=== PATIENT | male | born 1935 | race Caucasian/White ===

== ENCOUNTER → 2017-10-21 | Outpatient (CLI) | payer MEDICARE, BC ==
[~2017-10-21] MED LIST: ACETAMINOPHEN 325 MG TAB As Ordered; HEPARIN 1,000 UNITS/ML 10ML VIAL (FOR RADIOLOGY& DIALYSIS ONLY) As Ordered; ISOVUE-300 61% 50ML VIAL (Q9967) As Ordered; LIDOCAINE 2% MDV 20 ML VIAL As Ordered; MIDAZOLAM INJ 2 MG/2 ML VIAL (J2250) As Ordered; fentaNYL 100 MCG/2 ML INJECTION (J3010) As Ordered
== END | disposition home or self-care (01) ==
LOC: M IRPRO 07:37
DX: I70.249 Atherosclerosis of native arteries of left leg with ulceration of unspecified site (principal); L97.929 Non-pressure chronic ulcer of unspecified part of left lower leg with unspecified severity; I70.201 Unspecified atherosclerosis of native arteries of extremities, right leg; I70.0 Atherosclerosis of aorta; I25.10 Atherosclerotic heart disease of native coronary artery without angina pectoris; N18.9 Chronic kidney disease, unspecified; I71.4 Abdominal aortic aneurysm, without rupture; Z95.1 Presence of aortocoronary bypass graft; Z87.891 Personal history of nicotine dependence
CPT/HCPCS: 36246

== ENCOUNTER 2017-10-29 07:28 | Inpatient (IN) | payer MEDICARE, BC ==
[~2017-10-29 07:28] MED LIST changes: -ACETAMINOPHEN 325 MG TAB As Ordered; -HEPARIN 1,000 UNITS/ML 10ML VIAL (FOR RADIOLOGY& DIALYSIS ONLY) As Ordered; -ISOVUE-300 61% 50ML VIAL (Q9967) As Ordered; +LIDOCAINE 1% MDV 20ML VIAL SQ; -LIDOCAINE 2% MDV 20 ML VIAL As Ordered; -MIDAZOLAM INJ 2 MG/2 ML VIAL (J2250) As Ordered; -fentaNYL 100 MCG/2 ML INJECTION (J3010) As Ordered
[2017-10-29] MEDS ORDERED: ONDANSETRON 4MG/2ML VIAL (J2405) As Ordered (07:37)
[2017-10-29] MEDS ORDERED: ROCURONIUM BROMIDE 50 MG/5 ML VIAL As Ordered (07:37)
[2017-10-29] MEDS ORDERED: PROPOFOL 200 MG/20 ML VIAL As Ordered (07:37)
[2017-10-29] MEDS ORDERED: LIDOCAINE 2% INJ 100 MG/5 ML SDV (FOR ANES.) As Ordered (07:37)
[2017-10-29] MEDS ORDERED: MIDAZOLAM INJ 2 MG/2 ML VIAL (J2250) As Ordered (07:38)
[2017-10-29] MEDS ORDERED: fentaNYL 100 MCG/2 ML INJECTION (J3010) As Ordered (07:38)
[2017-10-29] MEDS ORDERED: ACETAMINOPHEN 500 MG TAB PO (09:15)
[2017-10-29] MEDS: LR 1,000 ML IV (09:15)
[2017-10-29] MEDS ORDERED: BISACODYL 10 MG SUPP PR (09:15)
[2017-10-29] MEDS ORDERED: MOM 30ML SUSPENSION UDC PO (09:15)
[2017-10-29 09:16] LABS: HEMATOCRIT 41.1 % (42.0-52.0); HEMOGLOBIN 12.5 g/dl (13.5-17.5); MEAN CORPUSCULAR HEMOGLOBIN 24.3 pg (27.0-33.0); MEAN CORPUSCULAR HGB CONC 30.4 g/dl (32.0-36.5); PLATELET COUNT, AUTOMATED 155 10^3/uL (150-450); RED BLOOD COUNT 5.14 10^6/uL (4.30-6.10); RED CELL DISTRIBUTION WIDTH 19.2 % (11.5-14.5)
[2017-10-29 09:33] LABS: ANION GAP 8 MEQ/L (8-16); BLOOD UREA NITROGEN 28 MG/DL (7-18); CALCIUM LEVEL 9.4 MG/DL (8.8-10.2); CARBON DIOXIDE LEVEL 30 MEQ/L (21-32); CHLORIDE LEVEL 104 MEQ/L (98-107); CREATININE FOR GFR 1.26 MG/DL (0.70-1.30); GLOMERULAR FILTRATION RATE 58.3 (>35); GLUCOSE, FASTING 84 MG/DL (70-100); POTASSIUM SERUM 4.4 MEQ/L (3.5-5.1); SODIUM LEVEL 142 MEQ/L (136-145)
[2017-10-29] MEDS: VITAMIN D 1,000 INTERNATIONAL UNITS TABLET PO (10:15)
[2017-10-29] MEDS: ATORVASTATIN 20 MG TAB PO (10:16)
[2017-10-29] MEDS: PERCOCET 5MG/325MG TAB PO ×3 (10:24→22:09)
[2017-10-29 10:25] LABS: ATYPICAL LYMPH 5 % (0-5); BASOPHILS 11 % (0-4); EOSINOPHILS 24 % (0-5); LYMPHOCYTES 12 % (16-52); MONOCYTES 2 % (0-8); NEUTROPHILS 46 % (35-75)
[2017-10-29] MEDS: PIPERACILLIN/TAZOBACTAM SOD 3.375 GM in D5W MINI-BAG PLUS 50 ML IV ×3 (10:25→22:08)
[2017-10-29 10:32] LABS: PLATELET ESTIMATE NORMAL (NORMAL)
[2017-10-29] MEDS: HEPARIN SOD (PORCINE) 5000 UNITS/ML VIAL SC ×2 (14:00→22:08)
[2017-10-29 15:17] LABS: DIFF SLIDE NUMBER 181
[2017-10-29 19:22] LABS: MAGNESIUM LEVEL 2.2 MG/DL (1.8-2.4)
[2017-10-29] MEDS: METOPROLOL TART 25 MG TABLET PO (20:49)
[2017-10-29] MEDS: DOCUSATE SODIUM 100 MG CAP PO (20:49)
[2017-10-29] MEDS: SENOKOT S TAB PO (20:49)
[2017-10-29] MEDS: MORPHINE 4 MG/ML 1ML VIAL/SYRINGE (J2270) IV (23:11)
[2017-10-30] MEDS: PERCOCET 5MG/325MG TAB PO ×3 (02:18→15:17)
[2017-10-30] MEDS: HEPARIN SOD (PORCINE) 5000 UNITS/ML VIAL SC ×3 (05:29→22:34)
[2017-10-30] MEDS: PIPERACILLIN/TAZOBACTAM SOD 3.375 GM in D5W MINI-BAG PLUS 50 ML IV ×4 (05:29→22:34)
[2017-10-30 06:12] LABS: HEMATOCRIT 37.5 % (42.0-52.0); HEMOGLOBIN 11.4 g/dl (13.5-17.5); MEAN CORPUSCULAR HEMOGLOBIN 23.8 pg (27.0-33.0); MEAN CORPUSCULAR HGB CONC 30.4 g/dl (32.0-36.5); MEAN CORPUSCULAR VOLUME 78.3 fl (80.0-96.0); PLATELET COUNT, AUTOMATED 149 10^3/uL (150-450); RED BLOOD COUNT 4.79 10^6/uL (4.30-6.10); RED CELL DISTRIBUTION WIDTH 18.7 % (11.5-14.5)
[2017-10-30 06:31] LABS: ALBUMIN 2.8 GM/DL (3.2-5.2); ANION GAP 9 MEQ/L (8-16); BLOOD UREA NITROGEN 25 MG/DL (7-18); CALCIUM LEVEL 9.2 MG/DL (8.8-10.2); CARBON DIOXIDE LEVEL 27 MEQ/L (21-32); CHLORIDE LEVEL 104 MEQ/L (98-107); CREATININE FOR GFR 1.25 MG/DL (0.70-1.30); GLOMERULAR FILTRATION RATE 58.9 (>35); GLUCOSE, FASTING 75 MG/DL (70-100); PHOSPHORUS LEVEL 3.1 MG/DL (2.5-4.9); SODIUM LEVEL 140 MEQ/L (136-145)
[2017-10-30] MEDS: FUROSEMIDE 40 MG TAB PO (08:11)
[2017-10-30] MEDS: MULTIVITAMINS/MINERALS THERAP 1 TAB PO (08:11)
[2017-10-30] MEDS: DOCUSATE SODIUM 100 MG CAP PO ×2 (08:11→20:35)
[2017-10-30] MEDS: ASPIRIN 81 MG ENTERIC TAB PO (08:11)
[2017-10-30] MEDS: SENOKOT S TAB PO ×2 (08:11→20:35)
[2017-10-30] MEDS: METOPROLOL TART 25 MG TABLET PO ×2 (08:11→20:35)
[2017-10-30] MEDS: OMEPRAZOLE 20 MG CAP PO (08:11)
[2017-10-30] MEDS: ATORVASTATIN 20 MG TAB PO (08:11)
[2017-10-30] MEDS: POTASSIUM CHLORIDE 10 MEQ SR TABLET PO (08:12)
[2017-10-31] MEDS: HEPARIN SOD (PORCINE) 5000 UNITS/ML VIAL SC ×3 (05:30→21:05)
[2017-10-31] MEDS: PIPERACILLIN/TAZOBACTAM SOD 3.375 GM in D5W MINI-BAG PLUS 50 ML IV ×4 (05:30→22:11)
[2017-10-31] MEDS: PERCOCET 5MG/325MG TAB PO ×2 (06:06→15:33)
[2017-10-31] MEDS: VITAMIN D 1,000 INTERNATIONAL UNITS TABLET PO (08:43)
[2017-10-31] MEDS: OMEPRAZOLE 20 MG CAP PO (08:43)
[2017-10-31] MEDS: predniSONE 2.5 MG TAB PO (08:44)
[2017-10-31] MEDS: ATORVASTATIN 20 MG TAB PO (08:44)
[2017-10-31] MEDS: METOPROLOL TART 25 MG TABLET PO ×2 (08:44→20:13)
[2017-10-31] MEDS: SENOKOT S TAB PO ×2 (08:44→19:53)
[2017-10-31] MEDS: MULTIVITAMINS/MINERALS THERAP 1 TAB PO (08:44)
[2017-10-31] MEDS: DOCUSATE SODIUM 100 MG CAP PO ×2 (08:44→19:53)
[2017-10-31] MEDS: ASPIRIN 81 MG ENTERIC TAB PO (08:44)
[2017-11-01] MEDS: PERCOCET 5MG/325MG TAB PO ×2 (03:52→10:54)
[2017-11-01] MEDS: HEPARIN SOD (PORCINE) 5000 UNITS/ML VIAL SC ×2 (05:26→13:17)
[2017-11-01] MEDS: PIPERACILLIN/TAZOBACTAM SOD 3.375 GM in D5W MINI-BAG PLUS 50 ML IV ×2 (05:31→10:54)
[2017-11-01] MEDS: DOCUSATE SODIUM 100 MG CAP PO (08:14)
[2017-11-01] MEDS: SENOKOT S TAB PO (08:14)
[2017-11-01] MEDS: SANTYL OINT 30GM TOP (09:00)
[2017-11-01] MEDS: ASPIRIN 81 MG ENTERIC TAB PO (09:16)
[2017-11-01] MEDS: FUROSEMIDE 40 MG TAB PO (09:16)
[2017-11-01] MEDS: ATORVASTATIN 20 MG TAB PO (09:17)
[2017-11-01] MEDS: POTASSIUM CHLORIDE 10 MEQ SR TABLET PO (09:17)
[2017-11-01] MEDS: MULTIVITAMINS/MINERALS THERAP 1 TAB PO (09:17)
[2017-11-01] MEDS: OMEPRAZOLE 20 MG CAP PO (09:17)
[2017-11-01] MEDS: METOPROLOL TART 25 MG TABLET PO (09:19)
== END 2017-11-01 16:47 | disposition home or self-care (01) | DRG 603 ==
LOC: M OR 07:28 → M MSPAV 10:10
DX: L03.116 Cellulitis of left lower limb (principal); I50.32 Chronic diastolic (congestive) heart failure; I70.222 Atherosclerosis of native arteries of extremities with rest pain, left leg; I70.248 Atherosclerosis of native arteries of left leg with ulceration of other part of lower leg; I11.0 Hypertensive heart disease with heart failure; Z79.82 Long term (current) use of aspirin; Z79.899 Other long term (current) drug therapy; Z88.8 Allergy status to other drugs, medicaments and biological substances; G47.33 Obstructive sleep apnea (adult) (pediatric); Z95.0 Presence of cardiac pacemaker; E78.5 Hyperlipidemia, unspecified; Z95.2 Presence of prosthetic heart valve; D69.6 Thrombocytopenia, unspecified; Z87.891 Personal history of nicotine dependence; D75.1 Secondary polycythemia; I71.2 Thoracic aortic aneurysm, without rupture; I49.5 Sick sinus syndrome; Z53.29 Procedure and treatment not carried out because of patient's decision for other reasons

== ENCOUNTER 2017-12-06 10:18 | Inpatient (IN) | payer MEDICARE, BC ==
[2017-12-06] MEDS ORDERED: MORPHINE 4 MG/ML 1ML VIAL/SYRINGE (J2270) As Ordered (12:07)
[2017-12-06] MEDS: MORPHINE 4 MG/ML 1ML VIAL/SYRINGE (J2270) IV (12:10)
[2017-12-06] MEDS ORDERED: CONRAY-60 60% 50ML VIAL (Q9961) As Ordered (12:28)
[2017-12-06] MEDS ORDERED: HEPARIN SOD (PORCINE) 5000 UNITS/ML VIAL As Ordered ×2 (12:28→16:57)
[2017-12-06] MEDS ORDERED: CLINDAMYCIN 600 MG/50 ML PREMIX BAG As Ordered (12:28)
[2017-12-06] MEDS ORDERED: fentaNYL 250 MCG/5 ML INJECTION (J3010) As Ordered (12:43)
[2017-12-06] MEDS ORDERED: LIDOCAINE 2% INJ 100 MG/5 ML SDV (FOR ANES.) As Ordered (12:43)
[2017-12-06] MEDS ORDERED: MIDAZOLAM INJ 2 MG/2 ML VIAL (J2250) As Ordered (12:43)
[2017-12-06] MEDS ORDERED: ROCURONIUM BROMIDE 50 MG/5 ML VIAL As Ordered ×2 (12:43→16:25)
[2017-12-06] MEDS ORDERED: PROPOFOL 200 MG/20 ML VIAL As Ordered (12:43)
[2017-12-06] MEDS ORDERED: ETOMIDATE INJ 20MG/10ML VIAL As Ordered (14:12)
[2017-12-06] MEDS: ceFAZolin 1GM INJ (J0690 PER 500MG) As Ordered (14:56)
[2017-12-06] MEDS ORDERED: dexameTHASONE 4 MG/ML 1ML VIAL (J1100) As Ordered ×2 (16:26)
[2017-12-06] MEDS ORDERED: ONDANSETRON 4MG/2ML VIAL (J2405) As Ordered (16:26)
[2017-12-06] MEDS ORDERED: PHENYLEPHRINE INJ 10MG/ML VIAL (J2370) As Ordered ×4 (17:40→19:41)
[2017-12-06] MEDS: THROMBIN SOLN 20,000 UNITS KIT As Ordered (18:00)
[2017-12-06] MEDS ORDERED: PROTAMINE SULF INJ 50 MG/5 ML VIAL (J2720) As Ordered (18:34)
[2017-12-06] MEDS ORDERED: NEOSTIGMINE 10 MG/10 ML VIAL (J2710) As Ordered (18:52)
[2017-12-06] MEDS ORDERED: GLYCOPYRROLATE INJ 0.2 MG/ML 2 ML VIAL As Ordered (18:54)
[2017-12-06] MEDS: ceFAZolin 2 GM/D5W 50 ML IV BAG (J0690 PER 500MG) As Ordered (18:59)
[2017-12-06] MEDS ORDERED: PERCOCET 5MG/325MG TAB PO (19:30)
[2017-12-06] MEDS ORDERED: BISACODYL 10 MG SUPP PR (19:30)
[2017-12-06] MEDS ORDERED: MOM 30ML SUSPENSION UDC PO (19:30)
[2017-12-06] MEDS ORDERED: diphenhydrAMINE INJ 50MG/ML VIAL (J1200) IV (19:30)
[2017-12-06] MEDS ORDERED: NALBUPHINE HCL 10 MG/ML AMP (J2300) IV (19:30)
[2017-12-06] MEDS ORDERED: EPIDURAL/PCA KEYS XX (19:30)
[2017-12-06] MEDS ORDERED: ONDANSETRON 4MG/2ML VIAL (J2405) IV ×2 (19:30→19:45)
[2017-12-06] MEDS ORDERED: NALOXONE INJ 0.4 MG/1 ML VIAL (J2310) IV (19:30)
[2017-12-06] MEDS ORDERED: HYDROMORPHONE HCL 0.5 MG/ 0.5 ML SYRINGE (J1170 PER 1) As Ordered (19:38)
[2017-12-06] MEDS ORDERED: PHENYLephrine HCL 500 MCG/5 ML (100MCG/ML) SYRINGE (J2370) As Ordered (19:39)
[2017-12-06] MEDS: PHENYLEPHRINE HCL INJ 10 MG in D5W 100 ML IV (19:42)
[2017-12-06] MEDS ORDERED: HYDROMORPHONE HCL 0.5 MG/ 0.5 ML SYRINGE (J1170 PER 1) IV (19:45)
[2017-12-06] MEDS ORDERED: fentaNYL 100 MCG/2 ML INJECTION (J3010) IV (19:45)
[2017-12-06] MEDS ORDERED: NORCO, ANEXSIA 5/325MG TABLET (HYDROcodone/ACETAMINOPHEN) PO (19:45)
[2017-12-06] MEDS: MORPHINE 1MG/ML IN 0.9% NACL 100ML IV BAG IV (20:07)
[2017-12-06] MEDS: METOPROLOL TART 25 MG TABLET PO (21:00)
[2017-12-06] MEDS ORDERED: NS 1,000 ML IV (21:15)
[2017-12-06] MEDS: SENOKOT S TAB PO (22:25)
[2017-12-06] MEDS: DOCUSATE SODIUM 100 MG CAP PO (22:25)
[2017-12-06] MEDS: HEPARIN SOD (PORCINE) 5000 UNITS/ML VIAL SC (22:25)
[2017-12-06] MEDS: LR 1,000 ML IV ×2 (22:27)
[2017-12-06 23:02] LABS: IMMEDIATE SPIN CROSSMATCH 1 4
[2017-12-07] MEDS: PHENYLEPHRINE HCL INJ 50 MG in D5W 495 ML IV (00:58)
[2017-12-07 03:09] LABS: BASO # 0.1 10^3/uL (0.0-0.2); BASO % 0.8 % (0.0-1.0); EOS # 0.1 10^3/uL (0.0-0.50); EOS % 0.5 % (0.0-3.0); HEMATOCRIT 39.4 % (42.0-52.0); HEMOGLOBIN 12.1 g/dl (13.5-17.5); IMMATURE GRANULOCYTE % 0.5 % (0-3.0); LYMPH # 1.4 10^3/uL (1.5-4.5); MEAN CORPUSCULAR HEMOGLOBIN 25.5 pg (27.0-33.0); MEAN CORPUSCULAR HGB CONC 30.7 g/dl (32.0-36.5); MEAN CORPUSCULAR VOLUME 82.9 fl (80.0-96.0); MONO # 1.1 10^3/uL (0.0-0.8); MONO % 6.4 % (0.0-5.0); NEUTROPHILS # 14.3 10^3/uL (1.8-7.7); NEUTROPHILS % 83.8 % (36.0-66.0); PLATELET COUNT, AUTOMATED 124 10^3/uL (150-450); RED BLOOD COUNT 4.75 10^6/uL (4.30-6.10); RED CELL DISTRIBUTION WIDTH 18.5 % (11.5-14.5); WHITE BLOOD COUNT 17.1 10^3/uL (4.0-10.0)
[2017-12-07 03:31] LABS: ALBUMIN 2.3 GM/DL (3.2-5.2); ANION GAP 9 MEQ/L (8-16); BLOOD UREA NITROGEN 27 MG/DL (7-18); CARBON DIOXIDE LEVEL 24 MEQ/L (21-32); CHLORIDE LEVEL 111 MEQ/L (98-107); CREATININE FOR GFR 1.19 MG/DL (0.70-1.30); GLOMERULAR FILTRATION RATE > 60.0 (>35); GLUCOSE, FASTING 115 MG/DL (70-100); PHOSPHORUS LEVEL 3.8 MG/DL (2.5-4.9); POTASSIUM SERUM 4.7 MEQ/L (3.5-5.1); SODIUM LEVEL 144 MEQ/L (136-145)
[2017-12-07] MEDS: HEPARIN SOD (PORCINE) 5000 UNITS/ML VIAL SC ×3 (06:29→22:17)
[2017-12-07] MEDS: NS 1,000 ML IV ×2 (06:30→09:30)
[2017-12-07] MEDS: METOPROLOL TART 25 MG TABLET PO ×2 (09:00→20:39)
[2017-12-07] MEDS: MULTIVITAMINS/MINERALS THERAP 1 TAB PO (09:33)
[2017-12-07] MEDS: SENOKOT S TAB PO ×2 (09:33→20:39)
[2017-12-07] MEDS: OMEPRAZOLE 20 MG CAP PO (09:33)
[2017-12-07] MEDS: ATORVASTATIN 20 MG TAB PO (09:33)
[2017-12-07] MEDS: DOCUSATE SODIUM 100 MG CAP PO ×2 (09:33→20:39)
[2017-12-07] MEDS: VITAMIN D 1,000 INTERNATIONAL UNITS TABLET PO (09:33)
[2017-12-07] MEDS: POTASSIUM CHLORIDE 10 MEQ SR TABLET PO (09:34)
[2017-12-07] MEDS: ASPIRIN 81 MG ENTERIC TAB PO (09:34)
[2017-12-07] MEDS: PIPERACILLIN/TAZOBACTAM SOD 3.375 GM in D5W MINI-BAG PLUS 50 ML IV (22:17)
[2017-12-08 05:05] LABS: MEAN CORPUSCULAR HEMOGLOBIN 25.6 pg (27.0-33.0); MEAN CORPUSCULAR HGB CONC 30.6 g/dl (32.0-36.5); MEAN CORPUSCULAR VOLUME 83.6 fl (80.0-96.0); PLATELET COUNT, AUTOMATED 100 10^3/uL (150-450); RED BLOOD COUNT 3.83 10^6/uL (4.30-6.10); RED CELL DISTRIBUTION WIDTH 18.7 % (11.5-14.5); WHITE BLOOD COUNT 12.9 10^3/uL (4.0-10.0)
[2017-12-08 05:09] LABS: HEMOGLOBIN 9.8 g/dl (13.5-17.5)
[2017-12-08 05:27] LABS: ANION GAP 6 MEQ/L (8-16); BLOOD UREA NITROGEN 27 MG/DL (7-18); CALCIUM LEVEL 8.1 MG/DL (8.8-10.2); CARBON DIOXIDE LEVEL 27 MEQ/L (21-32); CHLORIDE LEVEL 109 MEQ/L (98-107); CREATININE FOR GFR 1.26 MG/DL (0.70-1.30); GLOMERULAR FILTRATION RATE 58.3 (>35); GLUCOSE, FASTING 102 MG/DL (70-100); POTASSIUM SERUM 4.4 MEQ/L (3.5-5.1); SODIUM LEVEL 142 MEQ/L (136-145)
[2017-12-08] MEDS: PIPERACILLIN/TAZOBACTAM SOD 3.375 GM in D5W MINI-BAG PLUS 50 ML IV ×4 (05:33→21:44)
[2017-12-08] MEDS: HEPARIN SOD (PORCINE) 5000 UNITS/ML VIAL SC ×3 (05:34→21:41)
[2017-12-08] MEDS: OMEPRAZOLE 20 MG CAP PO (09:18)
[2017-12-08] MEDS: SENOKOT S TAB PO ×2 (09:18→21:41)
[2017-12-08] MEDS: VITAMIN D 1,000 INTERNATIONAL UNITS TABLET PO (09:19)
[2017-12-08] MEDS: MULTIVITAMINS/MINERALS THERAP 1 TAB PO (09:19)
[2017-12-08] MEDS: ASPIRIN 81 MG ENTERIC TAB PO (09:19)
[2017-12-08] MEDS: predniSONE 2.5 MG TAB PO (09:19)
[2017-12-08] MEDS: ATORVASTATIN 20 MG TAB PO (09:19)
[2017-12-08] MEDS: METOPROLOL TART 25 MG TABLET PO ×2 (09:19→21:00)
[2017-12-08] MEDS: DOCUSATE SODIUM 100 MG CAP PO ×2 (09:19→21:41)
[2017-12-08] MEDS: POTASSIUM CHLORIDE 10 MEQ SR TABLET PO (09:20)
[2017-12-08] MEDS: PHENYLEPHRINE HCL INJ 50 MG in D5W 495 ML IV (10:46)
[2017-12-08] MEDS: FUROSEMIDE 20 MG TAB PO (10:47)
[2017-12-08] MEDS: ACETAMINOPHEN 500 MG TAB PO (14:19)
[2017-12-08] MEDS: NS 1,000 ML IV (19:29)
[2017-12-08] MEDS: MORPHINE 1MG/ML IN 0.9% NACL 100ML IV BAG IV (21:42)
[2017-12-09] MEDS: PIPERACILLIN/TAZOBACTAM SOD 3.375 GM in D5W MINI-BAG PLUS 50 ML IV ×4 (04:00→21:13)
[2017-12-09 05:08] LABS: HEMATOCRIT 29.7 % (42.0-52.0); HEMOGLOBIN 9.1 g/dl (13.5-17.5); MEAN CORPUSCULAR HEMOGLOBIN 25.8 pg (27.0-33.0); MEAN CORPUSCULAR HGB CONC 30.6 g/dl (32.0-36.5); MEAN CORPUSCULAR VOLUME 84.1 fl (80.0-96.0); RED BLOOD COUNT 3.53 10^6/uL (4.30-6.10); WHITE BLOOD COUNT 11.4 10^3/uL (4.0-10.0)
[2017-12-09 05:12] LABS: PLATELET COUNT, AUTOMATED 99 10^3/uL (150-450)
[2017-12-09 05:13] LABS: IMMATURE PLATELET FRACTION % 4.3 % (0.0-10.9)
[2017-12-09 05:23] LABS: ANION GAP 7 MEQ/L (8-16); BLOOD UREA NITROGEN 21 MG/DL (7-18); CALCIUM LEVEL 8.3 MG/DL (8.8-10.2); CARBON DIOXIDE LEVEL 27 MEQ/L (21-32); CHLORIDE LEVEL 107 MEQ/L (98-107); CREATININE FOR GFR 1.12 MG/DL (0.70-1.30); GLOMERULAR FILTRATION RATE > 60.0 (>35); GLUCOSE, FASTING 93 MG/DL (70-100); SODIUM LEVEL 141 MEQ/L (136-145)
[2017-12-09] MEDS: METOPROLOL TART 25 MG TABLET PO ×2 (08:17→21:00)
[2017-12-09] MEDS: POTASSIUM CHLORIDE 10 MEQ SR TABLET PO (08:17)
[2017-12-09] MEDS: DOCUSATE SODIUM 100 MG CAP PO ×2 (08:17→21:13)
[2017-12-09] MEDS: FUROSEMIDE 40 MG TAB PO (08:17)
[2017-12-09] MEDS: ASPIRIN 81 MG ENTERIC TAB PO (08:17)
[2017-12-09] MEDS: OMEPRAZOLE 20 MG CAP PO (08:18)
[2017-12-09] MEDS: MULTIVITAMINS/MINERALS THERAP 1 TAB PO (08:18)
[2017-12-09] MEDS: SENOKOT S TAB PO ×2 (08:18→21:13)
[2017-12-09] MEDS: ATORVASTATIN 20 MG TAB PO (09:00)
[2017-12-09] MEDS: NS 1,000 ML IV (20:47)
[2017-12-10] MEDS: PIPERACILLIN/TAZOBACTAM SOD 3.375 GM in D5W MINI-BAG PLUS 50 ML IV ×4 (04:00→21:23)
[2017-12-10 05:07] LABS: HEMATOCRIT 30.2 % (42.0-52.0); HEMOGLOBIN 9.3 g/dl (13.5-17.5); MEAN CORPUSCULAR HEMOGLOBIN 25.8 pg (27.0-33.0); MEAN CORPUSCULAR HGB CONC 30.8 g/dl (32.0-36.5); MEAN CORPUSCULAR VOLUME 83.7 fl (80.0-96.0); PLATELET COUNT, AUTOMATED 109 10^3/uL (150-450); RED BLOOD COUNT 3.61 10^6/uL (4.30-6.10); RED CELL DISTRIBUTION WIDTH 19.1 % (11.5-14.5); WHITE BLOOD COUNT 12.3 10^3/uL (4.0-10.0)
[2017-12-10 05:31] LABS: ANION GAP 5 MEQ/L (8-16); BLOOD UREA NITROGEN 16 MG/DL (7-18); CARBON DIOXIDE LEVEL 30 MEQ/L (21-32); CHLORIDE LEVEL 107 MEQ/L (98-107); CREATININE FOR GFR 1.14 MG/DL (0.70-1.30); GLOMERULAR FILTRATION RATE > 60.0 (>35); GLUCOSE, FASTING 97 MG/DL (70-100); POTASSIUM SERUM 3.9 MEQ/L (3.5-5.1); SODIUM LEVEL 142 MEQ/L (136-145)
[2017-12-10] MEDS: METOPROLOL TART 25 MG TABLET PO ×2 (09:00→20:05)
[2017-12-10] MEDS: DOCUSATE SODIUM 100 MG CAP PO ×2 (09:27→19:38)
[2017-12-10] MEDS: ASPIRIN 81 MG ENTERIC TAB PO (09:27)
[2017-12-10] MEDS: predniSONE 2.5 MG TAB PO (09:27)
[2017-12-10] MEDS: ATORVASTATIN 20 MG TAB PO (09:28)
[2017-12-10] MEDS: OMEPRAZOLE 20 MG CAP PO (09:28)
[2017-12-10] MEDS: POTASSIUM CHLORIDE 10 MEQ SR TABLET PO (09:28)
[2017-12-10] MEDS: MULTIVITAMINS/MINERALS THERAP 1 TAB PO (09:28)
[2017-12-10] MEDS: SENOKOT S TAB PO ×2 (09:28→19:39)
[2017-12-10] MEDS: VITAMIN D 1,000 INTERNATIONAL UNITS TABLET PO (09:29)
[2017-12-10] MEDS ORDERED: ONDANSETRON 4MG/2ML VIAL (J2405) IV (10:00)
[2017-12-10 10:37] LABS: NT-PRO BNP 3650 PG/ML (<450)
[2017-12-10] MEDS: PERCOCET 5MG/325MG TAB PO ×2 (15:35→21:25)
[2017-12-10] MEDS: ACETAMINOPHEN 500 MG TAB PO (23:59)
[2017-12-11] MEDS: PIPERACILLIN/TAZOBACTAM SOD 3.375 GM in D5W MINI-BAG PLUS 50 ML IV ×4 (03:16→22:06)
[2017-12-11] MEDS: MULTIVITAMINS/MINERALS THERAP 1 TAB PO (09:04)
[2017-12-11] MEDS: POTASSIUM CHLORIDE 10 MEQ SR TABLET PO (09:05)
[2017-12-11] MEDS: SENOKOT S TAB PO (09:05)
[2017-12-11] MEDS: FUROSEMIDE 40 MG TAB PO (09:05)
[2017-12-11] MEDS: OMEPRAZOLE 20 MG CAP PO (09:05)
[2017-12-11] MEDS: ATORVASTATIN 20 MG TAB PO (09:05)
[2017-12-11] MEDS: DOCUSATE SODIUM 100 MG CAP PO (09:05)
[2017-12-11] MEDS: ASPIRIN 81 MG ENTERIC TAB PO (09:06)
[2017-12-11] MEDS: METOPROLOL TART 25 MG TABLET PO ×2 (09:07→22:08)
[2017-12-11] MEDS: LACTOBACILLUS ACIDOPHILUS CAP (BACID) PO (16:13)
[2017-12-11] MEDS: HEPARIN SOD (PORCINE) 5000 UNITS/ML VIAL SQ ×2 (17:17→22:07)
[2017-12-12] MEDS: PERCOCET 5MG/325MG TAB PO ×3 (00:55→19:53)
[2017-12-12] MEDS: PIPERACILLIN/TAZOBACTAM SOD 3.375 GM in D5W MINI-BAG PLUS 50 ML IV ×4 (03:57→21:38)
[2017-12-12 06:00] LABS: BASO # 0.3 10^3/uL (0.0-0.2); BASO % 2.5 % (0.0-1.0); EOS # 3.6 10^3/uL (0.0-0.50); HEMATOCRIT 28.3 % (42.0-52.0); HEMOGLOBIN 8.8 g/dl (13.5-17.5); IMMATURE GRANULOCYTE % 0.9 % (0-3.0); LYMPH # 1.6 10^3/uL (1.5-4.5); LYMPH % 12.1 % (24.0-44.0); MEAN CORPUSCULAR HEMOGLOBIN 25.2 pg (27.0-33.0); MEAN CORPUSCULAR HGB CONC 31.1 g/dl (32.0-36.5); MEAN CORPUSCULAR VOLUME 81.1 fl (80.0-96.0); MONO # 1.1 10^3/uL (0.0-0.8); MONO % 8.1 % (0.0-5.0); NEUTROPHILS # 6.3 10^3/uL (1.8-7.7); NEUTROPHILS % 48.7 % (36.0-66.0); PLATELET COUNT, AUTOMATED 138 10^3/uL (150-450); RED BLOOD COUNT 3.49 10^6/uL (4.30-6.10); RED CELL DISTRIBUTION WIDTH 19.5 % (11.5-14.5)
[2017-12-12] MEDS: HEPARIN SOD (PORCINE) 5000 UNITS/ML VIAL SQ ×3 (06:27→21:38)
[2017-12-12 06:30] LABS: EOS % 27.7 % (0.0-3.0); POSITIVE DIFF POS FLAG
[2017-12-12] MEDS: ASPIRIN 81 MG ENTERIC TAB PO (08:37)
[2017-12-12] MEDS: predniSONE 2.5 MG TAB PO (08:37)
[2017-12-12] MEDS: OMEPRAZOLE 20 MG CAP PO (08:37)
[2017-12-12] MEDS: POTASSIUM CHLORIDE 10 MEQ SR TABLET PO (08:38)
[2017-12-12] MEDS: LACTOBACILLUS ACIDOPHILUS CAP (BACID) PO ×2 (08:38→17:18)
[2017-12-12] MEDS: METOPROLOL TART 25 MG TABLET PO ×2 (08:38→19:55)
[2017-12-12] MEDS: MULTIVITAMINS/MINERALS THERAP 1 TAB PO (08:38)
[2017-12-12] MEDS: VITAMIN D 1,000 INTERNATIONAL UNITS TABLET PO (08:38)
[2017-12-12] MEDS: ATORVASTATIN 20 MG TAB PO (08:38)
[2017-12-12] MEDS: LOPERAMIDE 2 MG CAP PO (11:15)
[2017-12-12] MEDS: FERROUS GLUCONATE 324 MG TAB PO (15:12)
[2017-12-13] MEDS: PERCOCET 5MG/325MG TAB PO ×2 (01:07→07:41)
[2017-12-13] MEDS: PIPERACILLIN/TAZOBACTAM SOD 3.375 GM in D5W MINI-BAG PLUS 50 ML IV ×2 (03:38→10:50)
[2017-12-13] MEDS: HEPARIN SOD (PORCINE) 5000 UNITS/ML VIAL SQ ×2 (06:43→13:41)
[2017-12-13] MEDS: FUROSEMIDE 40 MG TAB PO (09:00)
[2017-12-13] MEDS: ASPIRIN 81 MG ENTERIC TAB PO (10:40)
[2017-12-13] MEDS: LACTOBACILLUS ACIDOPHILUS CAP (BACID) PO (10:40)
[2017-12-13] MEDS: POTASSIUM CHLORIDE 10 MEQ SR TABLET PO (10:43)
[2017-12-13] MEDS: FERROUS GLUCONATE 324 MG TAB PO (10:43)
[2017-12-13] MEDS: MULTIVITAMINS/MINERALS THERAP 1 TAB PO (10:43)
[2017-12-13 10:49] LABS: ANION GAP 8 MEQ/L (8-16); BLOOD UREA NITROGEN 12 MG/DL (7-18); CALCIUM LEVEL 8.3 MG/DL (8.8-10.2); CARBON DIOXIDE LEVEL 27 MEQ/L (21-32); CHLORIDE LEVEL 108 MEQ/L (98-107); GLOMERULAR FILTRATION RATE > 60.0 (>35); GLUCOSE, FASTING 115 MG/DL (70-100); POTASSIUM SERUM 3.2 MEQ/L (3.5-5.1); SODIUM LEVEL 143 MEQ/L (136-145)
[2017-12-13] MEDS: ATORVASTATIN 20 MG TAB PO (10:49)
[2017-12-13] MEDS: METOPROLOL TART 25 MG TABLET PO (10:49)
[2017-12-13] MEDS: OMEPRAZOLE 20 MG CAP PO (10:50)
[2017-12-13] MEDS: LOPERAMIDE 2 MG CAP PO (11:52)
== END 2017-12-13 13:58 | disposition home health service (06) | DRG 271 ==
LOC: M OR 10:18 → M ICU 21:20 → M MSPAV 12-10 18:50
PROC: 04CJ0ZZ Extirpation of Matter from Left External Iliac Artery, Open Approach (ICD-10-PCS; principal; 2017-12-06 12:00)
PROC: 04CL0ZZ Extirpation of Matter from Left Femoral Artery, Open Approach (ICD-10-PCS; 2017-12-06 12:00)
PROC: 04UL0JZ Supplement Left Femoral Artery with Synthetic Substitute, Open Approach (ICD-10-PCS; 2017-12-06 12:00)
PROC: 04UJ0JZ Supplement Left External Iliac Artery with Synthetic Substitute, Open Approach (ICD-10-PCS; 2017-12-06 12:00)
PROC: 30233N1 Transfusion of Nonautologous Red Blood Cells into Peripheral Vein, Percutaneous Approach (ICD-10-PCS; 2017-12-06 12:00)
DX: I70.248 Atherosclerosis of native arteries of left leg with ulceration of other part of lower leg (principal); D62 Acute posthemorrhagic anemia; R19.7 Diarrhea, unspecified; Z79.899 Other long term (current) drug therapy; Z79.82 Long term (current) use of aspirin; Z88.8 Allergy status to other drugs, medicaments and biological substances; Z79.52 Long term (current) use of systemic steroids; I25.10 Atherosclerotic heart disease of native coronary artery without angina pectoris; E78.5 Hyperlipidemia, unspecified; G47.33 Obstructive sleep apnea (adult) (pediatric); Z95.0 Presence of cardiac pacemaker; Z95.2 Presence of prosthetic heart valve

== ENCOUNTER 2018-08-12 08:10 | Observation (INO) | payer MEDICARE, BC ==
[~2018-08-12] VITALS: Ht 190.5 cm; Wt 97.7 kg
[~2018-08-12 08:10] MED LIST changes: +ALEV220T26 PO; +AMOX875T2 PO; +ASPI81TA26 PO; +ATOR40TA75 PO; +AUGM875T28 PO; +BACI1CAP PO; +CEFD300CAP PO; +CENTTAB PO; +DOXY100T PO; +FERR325T16 PO; +IMOD2CAP PO; +K-TA10TA2 PO; +KLOR20TA42 PO; +LASI40TA9 PO; -LIDOCAINE 1% MDV 20ML VIAL SQ; +LIPI20TA PO; +METO50TA7 PO; +OMEP20CA4 PO; +PERC5TAB12 PO; +PERCOCET PO; +PRED25TA PO; +TYLE500T78 PO; +VITA20008 PO
[2018-08-12] MEDS ORDERED: diphenhydrAMINE INJ 50MG/ML VIAL (J1200) As Ordered ONE (08:41)
[2018-08-12] MEDS ORDERED: BUPIVACAINE HCL 0.5% 10 ML VIAL As Ordered ONE (08:41)
[2018-08-12] MEDS ORDERED: fentaNYL 100 MCG/2 ML INJECTION (J3010) As Ordered ONE ×3 (08:41→15:44)
[2018-08-12] MEDS ORDERED: HEPARIN 1,000 UNITS/ML 10ML VIAL (FOR RADIOLOGY& DIALYSIS ONLY) As Ordered ONE (08:42)
[2018-08-12] MEDS ORDERED: MIDAZOLAM INJ 2 MG/2 ML VIAL (J2250) As Ordered ONE ×3 (08:42→15:45)
[2018-08-12] MEDS ORDERED: ISOVUE-300 61% 50ML VIAL (Q9967) As Ordered ONE (08:42)
[2018-08-12] MEDS ORDERED: LIDOCAINE 2% MDV 20 ML VIAL As Ordered ONE (08:42)
[2018-08-12 08:54] LABS: HEMATOCRIT 36.2 % (42.0-52.0); HEMOGLOBIN 10.8 g/dl (13.5-17.5); MEAN CORPUSCULAR HEMOGLOBIN 23.9 pg (27.0-33.0); MEAN CORPUSCULAR HGB CONC 29.8 g/dl (32.0-36.5); MEAN CORPUSCULAR VOLUME 80.1 fl (80.0-96.0); PLATELET COUNT, AUTOMATED 161 10^3/uL (150-450); RED BLOOD COUNT 4.52 10^6/uL (4.30-6.10); WHITE BLOOD COUNT 15.7 10^3/uL (4.0-10.0)
[2018-08-12 09:12] LABS: CALCIUM LEVEL 10.3 MG/DL (8.8-10.2); CREATININE FOR GFR 1.36 MG/DL (0.70-1.30); GLOMERULAR FILTRATION RATE 53.4 (>35); POTASSIUM SERUM 4.3 MEQ/L (3.5-5.1)
--- NOTE | 2018-08-12 11:28 | ROOPDOC ---
[facility] Report Of Operation Report of Operation Jean-Paul Ware MD Aug 12, 2018 11:28
[2018-08-12 17:55] VITALS: BP 154/70
[2018-08-12] MEDS ORDERED: METO1TAB7 PO (18:15)
[2018-08-12] MEDS ORDERED: OMEP40CA2 PO (18:15)
[2018-08-12] MEDS ORDERED: ACET-897 PO (18:15)
[2018-08-12] MEDS ORDERED: OXYC1TAB23 PO (18:15)
[2018-08-12] MEDS ORDERED: CENT1TAB PO (18:15)
[2018-08-12] MEDS ORDERED: POTA1TAB14 PO (18:15)
[2018-08-12] MEDS ORDERED: D3 22000 PO (18:15)
[2018-08-12 18:56] VITALS: BP 150/62
[2018-08-12] MEDS: ACETAMINOPHEN TAB 650MG DOSE (2X325MG) PO PRN (19:52)
[2018-08-12 19:55] VITALS: BP 116/67
[2018-08-12 20:55] VITALS: BP 94/60
[2018-08-12 22:00] VITALS: BP 100/64
[2018-08-12] MEDS ORDERED: ACETAMINOPHEN 500 MG TAB PO PRN (22:15)
[2018-08-12 22:55] VITALS: BP 115/60
[2018-08-12] MEDS: PERCOCET 5MG/325MG TAB PO PRN (23:23)
[2018-08-13] VITALS (9 sets, daily range): BP systolic 102–120; BP diastolic 56–70
[2018-08-13] MEDS: ACETAMINOPHEN TAB 650MG DOSE (2X325MG) PO PRN ×2 (01:59→08:36)
[2018-08-13] MEDS: PERCOCET 5MG/325MG TAB PO PRN (05:54)
[2018-08-13 07:00] LABS: HEMATOCRIT 30.1 % (42.0-52.0); HEMOGLOBIN 9.3 g/dl (13.5-17.5); MEAN CORPUSCULAR HEMOGLOBIN 24.5 pg (27.0-33.0); MEAN CORPUSCULAR HGB CONC 30.9 g/dl (32.0-36.5); MEAN CORPUSCULAR VOLUME 79.2 fl (80.0-96.0); PLATELET COUNT, AUTOMATED 120 10^3/uL (150-450); WHITE BLOOD COUNT 15.3 10^3/uL (4.0-10.0)
[2018-08-13 07:26] LABS: ALBUMIN 2.6 GM/DL (3.2-5.2); BLOOD UREA NITROGEN 21 MG/DL (7-18); CALCIUM LEVEL 9.4 MG/DL (8.8-10.2); CARBON DIOXIDE LEVEL 26 MEQ/L (21-32); CHLORIDE LEVEL 108 MEQ/L (98-107); CREATININE FOR GFR 1.18 MG/DL (0.70-1.30); GLOMERULAR FILTRATION RATE > 60.0 (>35); GLUCOSE, FASTING 67 MG/DL (70-100); PHOSPHORUS LEVEL 2.6 MG/DL (2.5-4.9); POTASSIUM SERUM 3.8 MEQ/L (3.5-5.1); SODIUM LEVEL 140 MEQ/L (136-145)
[2018-08-13] MEDS ORDERED: ASPIRIN 81 MG ENTERIC TAB PO SCH (09:00)
[2018-08-13] MEDS ORDERED: METOPROLOL SUCC (TopROL XL) 50MG **XL** TAB PO SCH (09:00)
[2018-08-13] MEDS ORDERED: OMEPRAZOLE 20 MG CAP PO SCH (09:00)
[2018-08-13] MEDS ORDERED: FUROSEMIDE 40 MG TAB PO SCH (09:00)
[2018-08-13] MEDS ORDERED: POTASSIUM CHLORIDE 10 MEQ SR TABLET PO SCH (09:00)
[2018-08-13] MEDS ORDERED: ATORVASTATIN 20 MG TAB PO SCH (09:00)
[2018-08-13] MEDS ORDERED: MULTIVITAMINS/MINERALS THERAP 1 TAB PO SCH (09:00)
--- NOTE | 2018-08-13 11:03 | IPNPDOC ---
Date Seen The patient was seen on 08/13/18. Progress Note Vascular Surgery Dr Ware HPI: 82year oldM admitted 08/12/18 S/P angiogram 08/12/18 for LLE ischemia as per Dr Ware with intervention. This AM the pt states there is less pain in LLE. No acute medical complaints today. Denies any fevers, chills, weakness, fatigue, Headache, Chest Pain, Shortness of breath, cough, palpitations, abdominal pain, N/V/D or changes in bowel or bladder habits. PAST MEDICAL HISTORY CAD HTN HLD PROSTATE CANCER WITH RADIATION IN 2011 SLEEP APNEA WITH BIPAP LEFT LEG CELLULITIS Chronic LE wounds followed by Dr Pierce. unsteady gait, Walker. SURGICAL HISTORY OSTEOTOMY - LEFT FOOT 1967 CYSTOSCOPY 1966 TONSILLS AND ADNOIDS REMOVED 193 ANGIOPLASTY 1986 TOTAL RIGHT HIP REPLACEMENT 1996 ANGIOPLASTY AND STENT - HEART 1999 RIGHT QUAD TENDON REPAIR 2003 LEFT QUAD TENDON REPAIR X 2 2003/2004 LEFT CATARACT REMOVED 2007 LEFT POPLITEAL ANEURISM WITH STENT CABG X 4 - AORTIC VALVE REPLACED 2012 PACEMAKER 2016 ENDOVASCULAR AAA STENT 2016 EGD AND COLONOSCOPY 2018 FEM-POP BYPASS DR TOBIAS 12/05/17 PE: GEN: 82yoM, appears stated age. Alert and oriented x 3. HEENT: Normocephalic, atraumatic. Moist mucous membranes. CHEST: Regular rate and rhythm, +S1, +S2 LUNGS: Clear to auscultation bilaterally. No wheezes, rales, or rhonchi. ABD: Round, soft, non-tender, non-distended. +Bowel sounds throughout. EXT: dressings are intact BL LEs. Left foot is warm to touch. pulses are obtainable with doppler, monophasic. SKIN: [place], dry, warm. No rashes. NEURO: Alert and oriented x 3. No focal deficits appreciated. A&P: 1. PAD, LLE ischemia S/P angiogram 08/12/18 Dr Ware with intervention. Rt groin site with no bleeding or TTP. Dressing intact. Pulses LLE obtained with doppler. pain in LLE better per pt. Pt has not been OOB yet s/p procedure. Uses cane for ambulation, chronic unsteady gait. Percocet Q6prn. ASA81/Lipitor. PT HSE pending. 2. HTN. lasix/KCL. 3. CAD/CABG ASA81 Toprol XL. Possible DC today pending HSE. VS, I&O, 24H, Fishbone Vital Signs/I&O Vital Signs Date Time Temp Pulse Resp B/P (MAP) Pulse Ox O2 Delivery O2 Flow Rate FiO2 08/13/18 08:30 83 120/58 08/13/18 06:55 98.4 16 94 I&O- Last 24 Hours up to 6 AM 08/13/18 06:00 Intake Total 900 ml Output Total 450 ml Balance 450 ml Laboratory Data 24H LABS Laboratory Tests 2 08/13/18 06:38: Nucleated Red Blood Cells % (auto) 0.0, Blood Urea Nitrogen 21H, Creatinine 1.18, Sodium Level 140, Potassium Level 3.8, Chloride Level 108H, Carbon Dioxide Level 26, Anion Gap 6L, Glomerular Filtration Rate > 60.0, Calcium Level 9.4, Phosphorus Level 2.6, Albumin 2.6L CBC/BMP Laboratory Tests 08/13/18 06:38 Red Blood Count 3.80 L, Mean Corpuscular Volume 79.2 L, Mean Corpuscular Hemoglobin 24.5 L, Mean Corpuscular Hemoglobin Concent 30.9 L, Red Cell Distribution Width 19.0 H, Anion Gap 6 L Lydia Cummings Aug 13, 2018 11:03
--- NOTE | 2018-08-13 11:33 | DS.PDOC ---
Discharge Summary General Date of Admission Aug 12, 2018 at 16:34 Date of Discharge 08/13/18 Discharge Summary PROCEDURES PERFORMED DURING STAY: Angiogram LLE 08/12/18 ADMITTING DIAGNOSES: 1. LLE ischemia S/P angiogram with intervention as per Dr Ware. 2. CAD 3. HTN 4. HLD 5. Chronic LE wounds followed by Dr Pierce. 6. unsteady gait, Walker. DISCHARGE DIAGNOSES: 1. LLE ischemia S/P angiogram with intervention as per Dr Ware. 2. CAD 3. HTN 4. HLD 5. Chronic LE wounds followed by Dr Pierce. 6. unsteady gait, Walker. COMPLICATIONS/CHIEF COMPLAINT: Left Foot Ischemia. HISTORY OF PRESENT ILLNESS: Pt was scheduled for angiogram LLE with Dr Ware 08/12/18. Intervention completed, no report available at this time. Hospital Course: The pt was observed post procedure. Is awake and has had breakfast this AM. States pain is improved. Pt has not been OOB yet, PT HSE pending at this time. Uses walker for ambulation, denies falls at home. Pt has chronic Le wounds, follows with Dr Pierce for mgmt. DISCHARGE MEDICATIONS: Please see below. ALLERGIES: Please see below. PHYSICAL EXAMINATION ON DISCHARGE: VITAL SIGNS: Please see below. LABORATORY DATA: Please see below. ACTIVITY: As tolerated. DIET: JAY DISCHARGE PLAN: D/C home today after clearance from PT HSE. FU with Dr Ware 1 week. FU with PCP 1 week. Cont FU and mgmt of chronic wounds a sper Dr Pierce. DISCHARGE INSTRUCTIONS: 1. Activity as tolerated. DISCHARGE CONDITION: Stable. TIME SPENT ON DISCHARGE: Greater than 30 minutes. Vital Signs/I&Os Vital Signs Date Time Temp Pulse Resp B/P (MAP) Pulse Ox O2 Delivery O2 Flow Rate FiO2 08/13/18 08:30 83 120/58 08/13/18 06:55 98.4 16 94 I&O- Last 24 Hours up to 6 AM 08/13/18 06:00 Intake Total 900 ml Output Total 450 ml Balance 450 ml Laboratory Data Labs 24H Laboratory Tests 2 08/13/18 06:38: Nucleated Red Blood Cells % (auto) 0.0, Blood Urea Nitrogen 21H, Creatinine 1.18, Sodium Level 140, Potassium Level 3.8, Chloride Level 108H, Carbon Dioxide Level 26, Anion Gap 6L, Glomerular Filtration Rate > 60.0, Calcium Level 9.4, Phosphorus Level 2.6, Albumin 2.6L CBC/BMP Laboratory Tests 08/13/18 06:38 Red Blood Count 3.80 L, Mean Corpuscular Volume 79.2 L, Mean Corpuscular Hemoglobin 24.5 L, Mean Corpuscular Hemoglobin Concent 30.9 L, Red Cell Distribution Width 19.0 H, Anion Gap 6 L Discharge Medications Scheduled Aspirin (Aspirin EC) 81 Mg Tab, 81 MG PO DAILY, (Reported) Atorvastatin Calcium (Atorvastatin Calcium) 40 Mg Tab, 40 MG PO DAILY, (Reported) Cholecalciferol (Vitamin D3) (Vitamin D3) 2,000 Unit Tablet, 2,000 UNIT PO 4XWK, (Reported) MON, WED, TH, SAT Furosemide (Lasix) 40 Mg Tab, 40 MG PO DAILY, (Reported) Metoprolol Succinate (Metoprolol Succinate) 50 Mg Tab.er.24h, 25 MG PO DAILY, (Reported) Multivit-Min/FA/Lycopen/Lutein (Centrum Silver Tablet) 1 Each Tablet, 1 TAB PO DAILY, (Reported) Omeprazole (Omeprazole) 40 Mg Capsule.dr, 40 MG PO DAILY, (Reported) Potassium Chloride (Potassium Chloride) 20 Meq Tablet.er, 20 MEQ PO DAILY, (Reported) Scheduled PRN Acetaminophen (Tylenol Extra Strength) 500 Mg Tablet, 500 MG PO BID PRN for PAIN, (Reported) Oxycodone HCl/Acetaminophen (Oxycodone-Acetaminophen 5-325) 1 Each Tablet, 1 TAB PO Q6H PRN for PAIN, (Reported) Allergies Coded Allergies: bacitracin (Verified Allergy, Mild, RED /SWELLING, 08/12/18) neomycin (Verified Allergy, Mild, RED /SWELLING, 08/12/18) polymyxin B (Verified Allergy, Mild, RED /SWELLING, 08/12/18) Lydia Cummings Aug 13, 2018 11:33
--- NOTE | 2018-09-03 08:23 | REPIR ---
DATE OF PROCEDURE: 08/12/2018 ATTENDING SURGEON: Dr. Jose Luis Ware ASSISTANTS: Aissatou Chowdhury and Chrissy Jimenez. PREOPERATIVE DIAGNOSIS: Renal insufficiency, left lower extremity pain. POSTOPERATIVE DIAGNOSIS: Renal insufficiency, left lower extremity pain. PROCEDURE: Right common femoral arterial cannulation, left common femoral arterial angioplasty with 7 x 100 balloon, left profunda femoris artery angioplasty with 7 x 100 balloon, left profunda femoris artery angioplasty and stent with 8 x 29 carotid wall stent postdilated with 7 x 120 balloon. DESCRIPTION OF PROCEDURE: The patient was taken to the angiography suite, placed on the angiography table and then prepped and draped in standard surgical fashion. The right common femoral artery was cannulated. The catheter was placed in the left common femoral artery and angiogram performed showing high grade stenosis in the left profunda femoris artery at its origin the superficial femoral artery was occluded. The left common and profunda femoris artery were angioplasty with 7 x 120 mm balloon and a completion angiogram showed residual stenosis. The left profunda femoris artery was then stented with an 8 x 29 carotid wall stent and postdilated with a 7 x 120 balloon. A completion angiogram showed resolution of the stenosis with excellent flow into the profunda femoris artery. Catheters and wires were removed. Dressings were then applied. The patient tolerated procedure well. All instruments, sponge, and needle counts were correct at the end of the case. There were no complications. Dr. Ware was present for and directed the entire case. The patient was transferred to the holding area and subsequently discharged in stable condition.
== END 2018-08-13 13:24 | disposition home or self-care (01) ==
LOC: M IRPRO 08:10 → M MS4PR 16:34
PROVIDERS: ADMIT Surgery Vascular Surgery; ATTEND Surgery Vascular Surgery
DX: I70.245 Atherosclerosis of native arteries of left leg with ulceration of other part of foot (principal); I25.10 Atherosclerotic heart disease of native coronary artery without angina pectoris; N18.9 Chronic kidney disease, unspecified; I12.9 Hypertensive chronic kidney disease with stage 1 through stage 4 chronic kidney disease, or unspecified chronic kidney disease; M79.662 Pain in left lower leg; E78.49 Other hyperlipidemia; L97.909 Non-pressure chronic ulcer of unspecified part of unspecified lower leg with unspecified severity; R26.81 Unsteadiness on feet; Z99.89 Dependence on other enabling machines and devices; Z79.82 Long term (current) use of aspirin; Z79.899 Other long term (current) drug therapy; Z88.1 Allergy status to other antibiotic agents; Z85.46 Personal history of malignant neoplasm of prostate; Z92.3 Personal history of irradiation; Z98.61 Coronary angioplasty status; Z95.0 Presence of cardiac pacemaker; Z95.1 Presence of aortocoronary bypass graft; L97.529 Non-pressure chronic ulcer of other part of left foot with unspecified severity
CPT/HCPCS: 36415; 37226; 75710; 80048; 80069; 85027; 97162; C1725; C1757; C1760; C1769; C1876; C1887; C1894; G0378; J1200; J2250; J3010; Q9967

== ENCOUNTER → 2018-09-09 | Outpatient (CLI) | payer MEDICARE, BC ==
[~2018-09-09] MED LIST changes: +ACET-897 PO; +CENT1TAB PO; +D3 22000 PO; +METO1TAB7 PO; +OMEP40CA2 PO; +OXYC1TAB23 PO; +POTA1TAB14 PO
--- NOTE | 2018-09-09 12:13 | REP ---
BILATERAL LOWER EXTREMITY DUPLEX DOPPLER ARTERIAL ULTRASOUND: Real-time ultrasound evaluation and duplex Doppler interrogation of the bilateral lower extremity arterial systems is performed. There is diffuse partially calcified and calcified plaquing somewhat limiting the exam due to distal acoustic shadowing. On the right the profunda appears occluded. Biphasic waveforms are seen in the right common femoral artery with monophasic waveforms distal to that. There are relatively normal flow velocities throughout the right lower extremity. There appear to be stenoses in various portions of the right superficial femoral and popliteal arteries. On the left the superficial femoral artery and popliteal artery are occluded. An enlarged lymph node is seen in the left inguinal region 2.9 x 1.1 x 1.7 cm. There is a hypoechoic area in the left inguinal region which may represent hematoma from prior procedure 3.3 x 1.3 x 1.6 cm. There is reconstitution of the left anterior and posterior tibial arteries via collateral vessels. PEAK SYSTOLIC VELOCITY RIGHT LEFT Common femoral artery 41.9 cm/s 84.2 cm/s Profunda occluded 118.0 Proximal SFA 76.8 occluded Superficial femoral artery mid 84.0 occluded Superficial femoral artery distal 125.0 occluded Popliteal 70.8 occluded Proximal anterior tibial artery 87.7 35.6 Tibial peroneal trunk 53.0 22.4 Proximal posterior tibial artery 63.5 16.9 Distal posterior tibial artery 40.9 14.4 Distal anterior tibial artery 79.1 16.6 IMPRESSION: There appears to be occlusion of the right profunda artery. There appear to be multiple stenoses throughout the right superficial femoral and popliteal arteries. There is occlusion of the left superficial femoral artery and popliteal artery with reconstitution of the left anterior and posterior tibial arteries via collateral vessels. Electronically Signed by Zoran De León MD 09/09/2018 05:34 P
== END ==
LOC: M RAD 08:57
PROVIDERS: ATTEND Physician Assistant
DX: Z48.812 Encounter for surgical aftercare following surgery on the circulatory system (principal)

== ENCOUNTER → 2018-11-18 | Outpatient (POV) | payer MEDICARE, BC ==
[~2018-11-18] VITALS: Ht 190.5 cm; Wt 95.5 kg
[2018-11-18 13:00] VITALS: BP 90/46
--- NOTE | 2018-11-19 10:06 | IRCOV ---
[facility] IR Consult Office Visit IR Consult Office Visit DATE: Nov 18, 2018 REASON FOR CONSULTATION/CHIEF COMPLAINT: Nonhealing left lower extremity wound. HISTORY OF PRESENT ILLNESS: 82-year-old male with coronary artery disease, hyperlipidemia, CABG 4, endovascular AAA endograft repair in 2015 presents with nonhealing left lower extremity wound and left lower extremity rest pain. No chest pain, shortness of breath, paroxysmal nocturnal dyspnea or orthopnea. No prior amputations. ALLERGIES: Please see below. HOME MEDICATIONS: Please see below. PAST MEDICAL HISTORY: Heart disease Hyperlipidemia Prostate cancer with radiation 2011 Sleep apnea Left leg cellulitis PAST SURGICAL HISTORY: Osteotomy left foot Cystoscopy Tonsil and adenoids removed Angioplasty 1985 Total right hip replacement Cardiac stents 1998 CABG 4 Aortic valve replacement Pacemaker Endovascular AAA repair with endograft placement. Femoropopliteal bypass FAMILY HISTORY: Nonsignificant. SOCIAL HISTORY: Lives with . Needs help with activities of daily living. Denies smoking alcohol or drugs. REVIEW OF SYSTEMS: Otherwise negative. PHYSICAL EXAMINATION: VITAL SIGNS: Please see below. GENERAL APPEARANCE: Appears well. Comfortable at rest. HEENT: No scleral icterus. RESPIRATORY: Symmetric breath sounds. CARDIOVASCULAR: Normal rate. Systolic murmur. ABDOMEN: Soft nontender. No pulsatile mass. EXTREMITIES: Left lower extremity: Edema to knees. Skin warm to touch. Hairless. I reviewed the images of the left lower extremity wound. Femoral pulse 2+ Right lower extremity: Edema to knees. warm to touch. Femoral pulse 2 + NEUROLOGICAL: Alert and oriented. PSYCHIATRIC: Appropriate to circumstance. LABORATORY DATA: Imaging: I reviewed the patient's prior angiograms. Angiogram performed July 2018, retrograde left groin access and angiogram demonstrates patent left external iliac and common femoral artery. Hypertrophied profunda femoris. Flush SFA occlusion. Calcification along the occluded entire [place] SFA territory. Then further angiograms were performed with retrograde up and over access from the right groin, demonstrates SFA occlusion and patent profunda femoris. I don't see a femoropopliteal bypass. There is reconstitution of the popliteal artery below the knee, patent proximal anterior tibial artery and tibioperoneal trunk. There are no runoff images to the foot. Angioplasty of the left common femoral artery was performed and an 8 mm x 29 mm stent placed in the common femoral artery. Angiogram from September 2017: Retrograde right groin access and aortogram. No intervention. I reviewed the ultrasound from August 2018. This demonstrates patent left common femoral artery, profunda femoris and occluded SFA. Monophasic waveforms in the tibioperoneal trunk, AT and PT. ASSESSMENT/PLAN: 83-year-old male with left lower extremity rest pain and nonhealing ulcers. Status post prior common femoral angioplasty and stent placement with known flush SFA occlusion but no documentation of below knee run off. I think patient would benefit from a complete angiogram of the left lower extremity with runoff +/ intervention at same time as necessary. I discussed the risks and benefits of the procedure with the patient and patient would like to proceed. We have scheduled the patient for the procedure. I spent 30 minutes in consultation with the patient. Thank you for this referral. Allergies Coded Allergies: bacitracin (Verified Allergy, Mild, RED /SWELLING, 08/12/18) neomycin (Verified Allergy, Mild, RED /SWELLING, 08/12/18) polymyxin B (Verified Allergy, Mild, RED /SWELLING, 08/12/18) Home Medications Scheduled Aspirin (Aspirin EC), 81 MG PO DAILY, (Reported) Atorvastatin Calcium (Atorvastatin Calcium), 40 MG PO DAILY, (Reported) Cholecalciferol (Vitamin D3) (Vitamin D3), 2,000 UNIT PO 4XWK, (Reported) Furosemide (Lasix), 40 MG PO DAILY, (Reported) Metoprolol Succinate (Metoprolol Succinate), 25 MG PO DAILY, (Reported) Multivit-Min/FA/Lycopen/Lutein (Centrum Silver Tablet), 1 TAB PO DAILY, (Reported) Omeprazole (Omeprazole), 40 MG PO DAILY, (Reported) Potassium Chloride (Potassium Chloride), 20 MEQ PO DAILY, (Reported) Scheduled PRN Acetaminophen (Tylenol Extra Strength), 500 MG PO BID PRN for PAIN, (Reported) Oxycodone HCl/Acetaminophen (Oxycodone-Acetaminophen 5-325), 1 TAB PO Q6H PRN for PAIN, (Reported) VS, I&O, 24H, Fishbone Vital Signs/I&O Vital Signs Date Time Temp Pulse Resp B/P (MAP) Pulse Ox O2 Delivery O2 Flow Rate FiO2 11/18/18 13:00 98.4 60 16 90/46 (37) 95 TRISTON FLORES MD Nov 19, 2018 10:06
== END ==
LOC: M IRPOV 12:54
PROVIDERS: ATTEND Radiology Diagnostic Radiology
DX: L97.929 Non-pressure chronic ulcer of unspecified part of left lower leg with unspecified severity (principal); M79.605 Pain in left leg; I25.10 Atherosclerotic heart disease of native coronary artery without angina pectoris; E78.5 Hyperlipidemia, unspecified; I71.4 Abdominal aortic aneurysm, without rupture; Z95.5 Presence of coronary angioplasty implant and graft; Z85.46 Personal history of malignant neoplasm of prostate; Z92.3 Personal history of irradiation; Z96.641 Presence of right artificial hip joint; Z95.4 Presence of other heart-valve replacement

== ENCOUNTER → 2018-12-18 | Outpatient (CLI) | payer MEDICARE, BC ==
[~2018-12-18] MED LIST changes: +HEPARIN 1,000 UNITS/ML 10ML VIAL (FOR RADIOLOGY& DIALYSIS ONLY) As Ordered ONE; +ISOVUE-300 61% 50ML VIAL (Q9967) As Ordered ONE; +LIDOCAINE 1% MDV 20ML VIAL As Ordered ONE; +MIDAZOLAM INJ 2 MG/2 ML VIAL (J2250) As Ordered ONE; +MORPHINE 10 MG/ML 1ML VIAL (J2270) As Ordered ONE; -OMEP40CA2 PO; +OMEP40CA97 PO; +PARO10TA3 PO; +PERCOCET 5MG/325MG TAB As Ordered ONE; +PROMETHAZINE INJ 25 MG/ML VIAL (J2550) As Ordered ONE; +diphenhydrAMINE INJ 50MG/ML VIAL (J1200) As Ordered ONE; +fentaNYL 100 MCG/2 ML INJECTION (J3010) As Ordered ONE
[2018-12-18 09:10] LABS: HEMATOCRIT 36.3 % (42.0-52.0); HEMOGLOBIN 10.9 g/dl (13.5-17.5); MEAN CORPUSCULAR HEMOGLOBIN 25.2 pg (27.0-33.0); MEAN CORPUSCULAR VOLUME 83.8 fl (80.0-96.0); PLATELET COUNT, AUTOMATED 211 10^3/uL (150-450); RED BLOOD COUNT 4.33 10^6/uL (4.30-6.10); WHITE BLOOD COUNT 15.6 10^3/uL (4.0-10.0)
[2018-12-18 09:16] LABS: INR 1.11
[2018-12-18 09:24] LABS: CREATININE FOR GFR 1.31 MG/DL (0.70-1.30); GLOMERULAR FILTRATION RATE 55.6 (>35); POTASSIUM SERUM 4.6 MEQ/L (3.5-5.1)
--- NOTE | 2018-12-18 13:31 | REP ---
IR Left leg angiogram. IR Diagnostic below-knee runoff. IR ultrasound guided left common femoral access. IR moderate sedation. Clinical Information: Left lower extremity pain. Non healing wounds. Physician: Dr Pedraza.Procedure: The patient was advised of the benefits, risks, and alternatives of the procedure and informed consent was obtained.A time out was performed with verification of the patient's name, MRN, site of procedure, and type of procedure to be performed. The patient was positioned in the supine position on the angiographic table. The site was prepped and draped in the usual sterile fashion.Moderate sedation was performed by the physician including the presence of an independent trained observer who assisted in monitoring the patient's level of consciousness and physiological status. Following the administration of Fentanyl and Versed, the physician spent 60 minutes of continuous [id number] time with the patient. A manager of organizational development radiograph reveals aorto bi-iliac Endo graft. Preliminary ultrasound of the left groin demonstrates patent common femoral artery and a stent in the profunda femoris. The left femoral artery was accessed antegrade with a micropuncture kit, under ultrasound and fluoroscopic guidance. Due to significant scar tissue in the left groin from multiple prior cut downs, only the micro sheath could be placed. Left leg angiogram was performed and this demonstrates a stent in the profunda femoris. The profunda femoris is patent and hypertrophied. The stent in the profunda femoris appears to cover the origin of the superficial femoral artery. No reflux of contrast into the superficial femoral artery. There is reflux of contrast into the common femoral artery. With the micro sheath in the same location, further angiography down the leg was performed. This demonstrates complete superficial femoral artery occlusion. Numerous collaterals in the distal thigh and proximal lower leg with NO distal reconstitution of the SFA. There is a stent in the location of the popliteal artery which is completely occluded, fractured and distorted. A diagnostic below-knee runoff angiogram was then performed. This demonstrates delayed reconstitution of the very distal unstented popliteal artery. Patent proximal anterior tibial and posterior tibial artery. Further runoff angiography to the foot was performed and this demonstrates patent two-vessel runoff to the left foot. Patent proximal mid and distal anterior and posterior tibial arteries. As the micro sheath was retracted under fluoroscopy guidance, an 018 wire was used to probe the common femoral artery for any indication of superficial femoral artery origin. However, it appears this is covered by the stent in the profunda femoris. The micro sheath and wire were removed, pressure held and hemostasis achieved. A sterile dressing was applied to the site. The patient tolerated the procedure well and was returned to PRU in stable condition. Complications: None. Estimated blood loss: Less than 5 ml. Impression: 1. Left leg angiogram demonstrates a stent within the profunda femoris covering the origin of the superficial femoral artery. Complete occlusion of the proximal mid and distal superficial femoral artery with no distal reconstitution. 2. Numerous collaterals in the thigh but no direct outflow. 3. Reconstitution of the distal popliteal artery which is delayed and patent anterior tibial and posterior tibial artery runoff to the left foot. 4. I see no options for endovascular recanalization in this patient. However given good proximal and distal targets, I will refer to surgery for bypass options. Thank you for this referral. Electronically Signed by Mayda Pedraza MD 12/18/2018 01:30 P
[2018-12-18 16:30] VITALS: BP 125/71
== END ==
LOC: M IRPRO 08:24
PROVIDERS: ATTEND Radiology Diagnostic Radiology
DX: I70.222 Atherosclerosis of native arteries of extremities with rest pain, left leg (principal); I70.249 Atherosclerosis of native arteries of left leg with ulceration of unspecified site; L90.5 Scar conditions and fibrosis of skin
CPT/HCPCS: 36140; 75710; 80048; 85027; 85610; 99152; 99153; C1769; C1887; C1894; J1200; J2250; J2270; J3010; Q9967

== ENCOUNTER 2018-12-22 16:29 | Inpatient (IN) | payer MEDICARE, BC ==
[~2018-12-22] VITALS: Ht 188 cm; Wt 91.5 kg
[~2018-12-22 16:29] MED LIST changes: -HEPARIN 1,000 UNITS/ML 10ML VIAL (FOR RADIOLOGY& DIALYSIS ONLY) As Ordered ONE; -ISOVUE-300 61% 50ML VIAL (Q9967) As Ordered ONE; -LIDOCAINE 1% MDV 20ML VIAL As Ordered ONE; -MIDAZOLAM INJ 2 MG/2 ML VIAL (J2250) As Ordered ONE; -MORPHINE 10 MG/ML 1ML VIAL (J2270) As Ordered ONE; -PERCOCET 5MG/325MG TAB As Ordered ONE; -PROMETHAZINE INJ 25 MG/ML VIAL (J2550) As Ordered ONE; -diphenhydrAMINE INJ 50MG/ML VIAL (J1200) As Ordered ONE; -fentaNYL 100 MCG/2 ML INJECTION (J3010) As Ordered ONE
[2018-12-22] MEDS ORDERED: MORPHINE 2 MG/ML 1ML VIAL (J2270) IV ONE ×2 (18:45→20:15)
[2018-12-22] MEDS ORDERED: CYCLOBENZAPRINE 5MG TABLET PO ONE (18:45)
[2018-12-22 18:58] LABS: HEMOGLOBIN 10.2 g/dl (13.5-17.5); MEAN CORPUSCULAR HEMOGLOBIN 24.7 pg (27.0-33.0); MEAN CORPUSCULAR VOLUME 82.3 fl (80.0-96.0); PLATELET COUNT, AUTOMATED 198 10^3/uL (150-450); RED BLOOD COUNT 4.13 10^6/uL (4.30-6.10); WHITE BLOOD COUNT 17.6 10^3/uL (4.0-10.0)
--- NOTE | 2018-12-22 19:17 | REP ---
Clinical: Left hip injury. Technique: Portable AP view of the left hip. Findings: Osteopenia and arthritic degenerative changes are appreciated. Vascular stent identified along with peripheral vascular disease. No obvious acute fracture dislocation appreciated. Impression: No obvious acute fracture or dislocation. Electronically Signed by Chris Rios MD 12/22/2018 07:08 P
[2018-12-22 19:34] LABS: ANISOCYTOSIS 2+; BASOPHILS 9 % (0-1); EOSINOPHILS 30 % (0-3); LYMPHOCYTES 6 % (16-44); MONOCYTES 5 % (0-5); NEUTROPHILS 50 % (28-66); POIKILOCYTOSIS 1+
[2018-12-22 19:35] LABS: OVALOCYTES 1+; PLATELET ESTIMATE NORMAL (NORMAL); SMUDGE CELLS 1+
--- NOTE | 2018-12-22 20:22 | REPVR ---
PROCEDURE INFORMATION: Exam: US Left Non-Vascular Joint or Other Extremity Structure, Limited Lower Extremity Exam date and time: 12/22/2018 7:40 PM Clinical history: 83 years old, male; Pain; Thigh; Left; Prior surgery; Surgery date: 3-7 days post-operative; Surgery type: Lt angio; Additional info: Left groin pain at angio site TECHNIQUE: Imaging protocol: Left US Non-Vascular Joint or Other Extremity Structure. Limited exam of the lower extremity. COMPARISON: US BILAT LOWER EXTREM ARTERIAL 09/09/2018 9:24 AM FINDINGS: Limitations: Limited by patient's body habitus. Soft tissues: Hypoechoic area measuring 4.8 x 1.9 x 2.7 cm corresponding to the area of incision, suspect scarring, and/or postoperative fluid. Vasculature: Proximal femoral artery appears occluded, patent deep femoral artery. Common from artery not visualized. Stents in the left iliac artery appears patent. IMPRESSION: 1. Hypoechoic area measuring 4.8 x 1.9 x 2.7 cm corresponding to the area of incision, suspect scarring, and/or postoperative fluid. 2. Proximal femoral artery appears occluded, patent deep femoral artery. Common from artery not visualized. Electronically signed by: Sami Elias On 12/22/2018 20:22:34 PM
[2018-12-22] MEDS ORDERED: MORPHINE 4 MG/ML 1ML VIAL/SYRINGE (J2270) IV ONE (21:15)
[2018-12-22] MEDS ORDERED: PERCOCET 5MG/325MG TAB PO ONE (22:45)
[2018-12-22] MEDS ORDERED: ISOVUE-370 76% 100ML VIAL (Q9967) As Ordered ONE (22:45)
--- NOTE | 2018-12-23 01:33 | REPVR ---
PROCEDURE INFORMATION: Exam: CT Angiogram of the Abdominal Aorta and Bilateral Lower Extremities (Run-off) With IV Contrast Exam date and time: 12/22/2018 10:39 PM Clinical history: 83 years old, male; Condition or disease; Peripheral vascular disease; Additional info: Left leg pain; S/P angio left leg TECHNIQUE: Imaging protocol: CT angiogram of the abdominal aorta, pelvis and bilateral lower extremities with IV iodinated contrast. 3D rendering: MIP reconstructed images were created and reviewed. Radiation optimization: All CT scans at this facility use at least one of these dose optimization techniques: automated exposure control; mA and/or kV adjustment per patient size (includes targeted exams where dose is matched to clinical indication); or iterative reconstruction. Contrast material: ISO; Contrast volume: 100 ml; Contrast route: AC; COMPARISON: US UNI LOW EXTREM ARTERIAL LIMIT 12/22/2018 7:24 PM FINDINGS: Tubes, catheters and devices: Pacemaker wires were partially imaged. Aorta: There is a fusiform infrarenal abdominal aortic aneurysm that measures 3.5 cm x 3.6 cm. No rupture of the aneurysm is noted. There is a patent aortobiiliac endovascular stent graft in place extending into both common iliac arteries. Celiac trunk and mesenteric arteries: There is an occlusion of the inferior mesenteric artery, with collateral circulation supplied by the marginal artery of Ed. The celiac artery and superior mesenteric artery are patent. Renal arteries: No occlusion or significant stenosis. Right iliac arteries: No occlusion or significant stenosis. There is a patent endovascular stent graft extending from the right external iliac artery to the right common femoral artery. Right femoral/popliteal arteries: No occlusion or significant stenosis. There are extensive atherosclerotic calcifications of the right superficial femoral artery, right profunda femoris artery, and right popliteal artery. Right infrapopliteal arteries: There is severe stenosis of the right tibioperoneal trunk secondary to predominately calcified atherosclerotic plaque. The right anterior tibial artery and imaged portion of the right dorsalis pedis artery are patent. The right posterior tibial artery is patent. There is severe stenosis of the proximal portion of the right peroneal artery, which is patent more distally. Left iliac arteries: No occlusion or significant stenosis. The left internal iliac artery is ectatic and measures 1.7 cm in diameter. Left femoral/popliteal arteries: There is a long segment occlusion of the left common femoral artery, left proximal, mid, and distal superficial femoral artery, and the endovascular stent graft in the left popliteal artery at and above the level of the left knee joint. There is reconstitution of blood flow in the left popliteal artery just below the level of the left knee joint. There is a patent endovascular stent graft in the left proximal left profunda femoris artery. The left profunda femoris artery is patent. Left infrapopliteal arteries: There is a severe stenosis of the left tibioperoneal trunk secondary to calcified atherosclerotic plaque. There is severe stenosis of the left proximal anterior tibial artery secondary to calcified atherosclerotic plaque. The left anterior tibial artery is patent more distally. The left dorsalis pedis artery is also patent. There are regions of severe stenosis involving the origin and proximal portion of the left posterior tibial artery secondary to calcified atherosclerotic plaque, and the left posterior tibial artery is patent more distally. There is severe stenosis of the left proximal peroneal artery secondary to calcified atherosclerotic plaque, and the left peroneal artery is patent more distally. Lungs: There are paraseptal emphysematous changes in the lung bases. There is mild atelectasis in both lower lobes. Heart: No cardiomegaly or pericardial effusion is noted. Postoperative changes are noted from aortic valve surgery. There are extensive mitral annular calcifications. Coronary artery calcifications are also noted. Liver: Unremarkable. No liver lesion is seen. The contour of the liver is smooth. No hepatomegaly is noted. Gallbladder and bile ducts: No calcified gallstones are seen. No gallbladder wall thickening, pericholecystic fluid, or pericholecystic inflammatory changes are identified. No dilation of the intrahepatic or extrahepatic bile ducts is noted. Pancreas: Normal. No ductal dilation. Spleen: The spleen is heterogeneous in appearance, which is likely secondary to the arterial timing of the contrast bolus. No splenomegaly. Adrenals: There is left greater than right thickening of the adrenal glands. Kidneys and ureters: There are staghorn calculi in the right renal collecting system measuring approximately 2.3 cm and 2.8 cm, the larger of which extends into the right renal pelvis. There is severe left hydroureteronephrosis and mild right hydroureter. No right hydronephrosis is noted. There are several simple cysts in both kidneys measuring up to 5 cm in the superior pole of the left kidney. Stomach and bowel: There is colonic diverticulosis without evidence for diverticulitis. There is no evidence for a bowel obstruction, strangulation, colitis, pneumatosis intestinalis, intussusception, volvulus, or perforated viscus. Appendix: Normal. No evidence for appendicitis. Bladder: There are two 5.3 cm irregular polypoid masses containing calcifications along the left superior and left posterior rogers of the bladder, which are highly suspicious for malignancy. The mass along the left posterior wall of the urinary bladder is located at the left ureterovesical junction. No extension of the mass is beyond the wall of the bladder is noted. There are several calcifications layering in the dependent portion of the right side of the bladder measuring up to 4 mm, which may represent calculi. Reproductive: There are 3 small metallic density foci in the prostate gland. Intraperitoneal space: Unremarkable. No fluid collection. No free air. Retroperitoneal space: Unremarkable. No fluid collection. No mass. Lymph nodes: Normal. No enlarged lymph nodes. Bones/joints: There are no bony destructive changes. 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 The left L5 pars interarticularis is intact. No acute fracture is noted. There is no suspicious osteolytic or osteoblastic lesion. Right total hip arthroplasty hardware is in place, which causes streak artifact. 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 Median sternotomy suture wires were partially imaged. There is a moderate dextroscoliosis of the thoracolumbar spine and degenerative changes in the lumbar spine. The left patella is low riding (patella baja) and laterally riding. Soft tissues: There is a large left anterior abdominal wall hernia containing the distal descending colon and proximal sigmoid colon between the left external oblique muscle and left transversus abdominis muscle. There is a large indirect right inguinal hernia containing several loops of distal ileum. There is a small post procedural seroma and scarring of the soft tissues in the left groin. There is also scarring of the soft tissues in the right groin. There is soft tissue thickening and edema posterior and inferior to both ischial tuberosities. There is a large conglomerate of calcifications anterior to the right tibial tuberosity and distal fibers of the right patellar tendon. There is severe fatty atrophy of the posterior and deep posterior compartment muscles of both calves. There is soft tissue swelling and edema in both calves and in the dorsal aspect of both feet. There are soft tissue ulcers in the anterior and lateral aspect of the left distal calf but without an underlying drainable rim-enhancing fluid collection. No gas is noted in the soft tissues to suggest necrotizing fasciitis. IMPRESSION: 1. Two 5.3 cm irregular polypoid masses containing calcifications along the left superior and left posterior rogers of the bladder, which are highly suspicious for bladder malignancy, one which is located at the left ureterovesical junction and causes a left ureteral obstruction and severe left hydroureteronephrosis. Urology consultation is suggested for further management. 2. Long segment occlusion of the left common femoral artery, left proximal, mid, and distal superficial femoral artery, and the endovascular stent graft in the left popliteal artery at and above the level of the left knee joint. There is reconstitution of blood flow in the left popliteal artery just below the level of the left knee joint. 3. Severe stenosis of the left tibioperoneal trunk, proximal left anterior tibial artery, proximal left peroneal artery, and origin and proximal portion of the left posterior tibial artery. 4. Severe stenosis of the right tibioperoneal trunk and proximal right peroneal artery. 5. 3.5 cm x 3.6 cm fusiform infrarenal abdominal aortic aneurysm. No rupture of the aneurysm. Patent aortobiiliac endovascular stent graft in place extending into both common iliac arteries. 6. Occlusion of the inferior mesenteric artery, with collateral circulation supplied by the marginal artery of Ed. 7. Several calculi in the right posterior aspect of the urinary bladder distal to the right ureterovesical junction and there is mild right hydroureter and staghorn calculi in the right renal collecting system. 8. Large left anterior abdominal wall hernia containing the distal descending colon and proximal sigmoid colon between the left external oblique muscle and left transversus abdominis muscle. No bowel obstruction or strangulation. 9. Large indirect right inguinal hernia containing several loops of distal ileum. No bowel obstruction or strangulation. 10. Soft tissue ulcers in the anterior and lateral aspect of the left distal calf and cellulitis or lymphedema in both calves and feet. No CT evidence for an abscess, necrotizing fasciitis, or osteomyelitis. 11. Small post procedural seroma and scarring of the soft tissues in the left groin. 12. Colonic diverticulosis without evidence for diverticulitis. Electronically signed by: Matt Mcwilliams On 12/23/2018 01:32:29 AM
[2018-12-23] MEDS ORDERED: PERCOCET 5MG/325MG TAB PO ONE (02:15)
[2018-12-23] MEDS ORDERED: NS 1,000 ML IV SCH (02:30)
[2018-12-23] MEDS ORDERED: SANT250O8 TOP (03:15)
[2018-12-23] MEDS ORDERED: VITMTA PO (03:15)
[2018-12-23] MEDS ORDERED: METO25TA4 PO (03:15)
--- NOTE | 2018-12-23 03:29 | HPEPDOC ---
[facility] Medical History & Physical Date of Admission Dec 23, 2018 Date of Service: Dec 23, 2018 Primary Care Physician: A Other Provider Dulce Nogueira MD Attending Physician: RADHA ALVARENGA MD History and Physical TIME OF SERVICE: 3:50 AM CHIEF COMPLAINT: Leg pain HISTORY OF PRESENT ILLNESS: This is an 83-year-old man who presents with complaints of left leg and groin pain that was so severe he decided come to the ED for evaluation. He has a history of left femoral occlusion and had an angiogram on . He denies having fevers, denies having chills, denies having nausea, denies having vomiting, denies having abdominal pain. After receiving medications in the ED, the pain improve a bit therefore the ED provider requested admission for pain management. REVIEW OF SYSTEMS: 12 point review of systems negative except as listed in HPI PAST MEDICAL/ SURGICAL HISTORY: PVD with occlusion of the left femoral artery/history of femoropopliteal bypass. Chronic CAD status post angioplasty placement/status post quadruple by pass Dyslipidemia. History of prostate cancer status post radiation. Status post endovascular AAA graft placement Hearing loss/wears hearing aids Status post tonsillectomy. Status post cataract surgery. Status post aortic valve repair. Status post pacemaker placement. History of left lower extremity cellulitis SOCIAL HISTORY: Quit smoking FAMILY HISTORY: Cancer ALLERGIES: Please see below. HOME MEDICATIONS: Please see below. PHYSICAL EXAMINATION: VITAL SIGNS: Please see below. GENERAL APPEARANCE: Well-nourished, well-developed, not in apparent distress HEENT: Normocephalic, atraumatic, mucous membranes moist and pink CARDIOVASCULAR: Regular rate and rhythm. No murmurs, rubs or gallops LUNGS: Clear to auscultation bilaterally on room air ABDOMEN: Soft and nontender on palpation. Bowel sounds are hypoactive MUSCULOSKELETAL: Lower legs are wrapped in clean and dry dressings, the left lower leg. This purple in color but warm to touch NEUROLOGICAL: Cranial nerves II-12 except auditory are grossly intact. Speech is not dysarthric PSYCHIATRIC: Oriented able to understand and follow commands LABORATORY DATA: See below. IMAGING: Ultrasound of the left lower extremity "IMPRESSION: 1. Hypoechoic area measuring 4.8 x 1.9 x 2.7 cm corresponding to the area of incision, suspect scarring, and/or postoperative fluid. 2. Proximal femoral artery appears occluded, patent deep femoral artery. Common from artery not visualized. Left hip x-ray "Impression: No obvious acute fracture or dislocation." CT Angiogram abdomen "IMPRESSION: 1. Two 5.3 cm irregular polypoid masses containing calcifications along the left superior and left posterior rogers of the bladder, which are highly suspicious for bladder malignancy, one which is located at the left ureterovesical junction and causes a left ureteral obstr uction and severe left hydroureteronephrosis. Urology consultation is suggested for further management. 2. Long segment occlusion of the left common femoral artery, left proximal, mid, and distal superficial femoral artery, and the endovascular stent graft in the left popliteal artery at and above the level of the left knee joint. There is reconstitution of blood flow in the left popliteal artery just below the level of the left knee joint. 3. Severe stenosis of the left tibioperoneal trunk, proximal left anterior tibial artery, proximal left peroneal artery, and origin and proximal portion of the left posterior tibial artery. 4. Severe stenosis of the right tibioperoneal trunk and proximal right peroneal artery. 5. 3.5 cm x 3.6 cm fusiform infrarenal abdominal aortic aneurysm. No rupture of the aneurysm. Patent aortobiiliac endovascular stent graft in place extending into both common iliac arteries. 6. Occlusion of the inferior mesenteric artery, with collateral circulation supplied by the marginal artery of Ed. 7. Several calculi in the right posterior aspect of the urinary bladder distal to the right ureterovesical junction and there is mild right hydroureter and staghorn calculi in the right renal collecting system. 8. Large left anterior abdominal wall hernia containing the distal descending colon and proximal sigmoid colon between the left external oblique muscle and left transversus abdominis muscle. No bowel obstruction or strangulation. 9. Large indirect right inguinal hernia containing several loops of distal ileum. No bowel obstruction or strangulation. 10. Soft tissue ulcers in the anterior and lateral aspect of the left distal calf and cellulitis or lymphedema in both calves and feet. No CT evidence for an abscess, necrotizing fasciitis, or osteomyelitis.11. Small post procedural seroma and scarring of the soft tissues in the left groin. 12. Colonic diverticulosis without evidence for diverticulitis. MICROBIOLOGY: Please see below. ASSESSMENT: is an 83-year-old male with a past history of severe PVD, chronic CAD, dyslipidemia, BHUPINDER, aortic valve repair, and triple a repair, who is admitted for management of SIRS and left groin pain, possibly related to hematoma. PLAN: 1. SIRS Possibly due to hematoma versus lower extremity cellulitis. SIRS criteria include HR >90 / WBC >12 Plan: Complete Sepsis protocol w lactic acid /start Zosyn and IV fluids / f/u blood cx, / Acetaminophen PRN for fever 2. Groin pain 2/2 possibly secondary to hematoma. Plan: Vascular Surgery consult to determine if he has a hematoma that could be causing infection and if he needs I&D / Acetaminophen and Tramadol for pain 3.PVD Has complete occlusion of the left femoral artery/history of femoropopliteal bypass Plan: c/w home meds 4. Chronic CAD / Dyslipidemia status post angioplasty placement/status post quadruple by-pass Plan: c/w home meds DVT prophylaxis with SCDs bc of possible hematoma Disposition pending clinical course Vital Signs Vital Signs Date Time Temp Pulse Resp B/P (MAP) Pulse Ox O2 Delivery O2 Flow Rate FiO2 12/23/18 02:57 105 20 96/54 (68) 93 Room Air 12/23/18 00:59 100.0 Laboratory Data Labs 24H Laboratory Tests 2 12/22/18 18:39: Eosinophils (%) (Auto) , Nucleated Red Blood Cells % (auto) 0.0, Neutrophils 50, Lymphocytes (Manual) 6L, Monocytes (Manual) 5, Eosinophils (Manual) 30H, Basophi ls (Manual) 9H, Poikilocytosis 1+, Anisocytosis 2+, Ovalocytes 1+, Smudge Cells 1+, Platelet Estimate NORMAL 12/22/18 18:45: Bedside Prothrombin Time INR 1.7, Prothrombin Time (MISC) 19.6H 12/22/18 18:46: POC Glucose (Misc Panel) 91, POC Sodium (Misc Panel) 139, POC Potassium (Misc Panel) 4.8, POC Chloride (Misc Panel) 102, POC Total CO2 (Misc Panel) 27.0, POC Blood Urea Nitrogen (Misc Panel 29H, POC Ionized Calcium (Misc Panel) 5.5H, POC Creatinine (Misc Panel) 1.4H, POC Hematocrit (Misc Panel) 37.0L 12/23/18 02:41: Lactic Acid Level 2.0 CBC/BMP Laboratory Tests 12/22/18 18:39 Microbiology Microbiology 12/23/18 Blood Culture, Received Pending 12/23/18 Blood Culture, Received Pending Home Medications Scheduled Aspirin (Aspirin EC) 81 Mg Tab, 81 MG PO DAILY Atorvastatin Calcium (Atorvastatin Calcium) 40 Mg Tab, 40 MG PO DAILY Cholecalciferol (Vitamin D3) (Vitamin D3) 2,000 Unit Tablet, 2,000 UNIT PO 4XWK MON, WED, THURS, SAT Collagenase Clostridium Hist. (Santyl) 30 Gm Oint...g., 1 DOSE TOP DAILY APPLIES TO LOWER LEFT LEG Furosemide (Lasix) 40 Mg Tab, 40 MG PO DAILY Metoprolol Tartrate (Metoprolol Tartrate) 25 Mg Tablet, 25 MG PO BID Multivitamins (Thera M Plus Tablet) 1 Each Tablet, 1 TAB PO DAILY Omeprazole (Omeprazole) 40 Mg Capsule.dr, 40 MG PO DAILY Oxycodone HCl/Acetaminophen (Oxycodone-Acetaminophen 5-325) 1 Each Tablet, 2 TAB PO QHS Paroxetine HCl (Paroxetine) 10 Mg Tablet, 10 MG PO DAILY Potassium Chloride (Potassium Chloride) 20 Meq Tablet.er, 20 MEQ PO DAILY Scheduled PRN Acetaminophen (Tylenol Extra Strength) 500 Mg Tablet, 1,000 MG PO TID PRN for PAIN Allergies Coded Allergies: bacitracin (Verified Allergy, Mild, RED /SWELLING, 08/12/18) neomycin (Verified Allergy, Mild, RED /SWELLING, 08/12/18) polymyxin B (Verified Allergy, Mild, RED /SWELLING, 08/12/18) A-FIB/CHADSVASC A-FIB History Current/History of A-Fib/PAF?: No Current PO Anticoag Therapy: No RADHA ALVARENGA MD Dec 23, 2018 03:29
[2018-12-23] MEDS: NS 1,000 ML IV SCH ×2 (04:15→09:04)
[2018-12-23 04:30] VITALS: BP 114/60
[2018-12-23] MEDS ORDERED: SANTYL OINT 30GM TOP SCH (05:30)
[2018-12-23 06:01] LABS: HEMATOCRIT 31.9 % (42.0-52.0); HEMOGLOBIN 9.5 g/dl (13.5-17.5); MEAN CORPUSCULAR HEMOGLOBIN 24.7 pg (27.0-33.0); MEAN CORPUSCULAR HGB CONC 29.8 g/dl (32.0-36.5); MEAN CORPUSCULAR VOLUME 82.9 fl (80.0-96.0); PLATELET COUNT, AUTOMATED 171 10^3/uL (150-450); RED BLOOD COUNT 3.85 10^6/uL (4.30-6.10); WHITE BLOOD COUNT 18.9 10^3/uL (4.0-10.0)
[2018-12-23 06:16] LABS: CALCIUM LEVEL 9.5 MG/DL (8.8-10.2); CREATININE FOR GFR 1.38 MG/DL (0.70-1.30); GLOMERULAR FILTRATION RATE 52.4 (>35); POTASSIUM SERUM 4.5 MEQ/L (3.5-5.1)
[2018-12-23] MEDS: PIPERACILLIN/TAZOBACTAM SOD 2.25 GM in D5W MINI-BAG PLUS 50 ML IV SCH ×4 (06:19→22:07)
[2018-12-23] MEDS: SANTYL OINT 30GM TOP PRN (06:20)
[2018-12-23] MEDS: ACETAMINOPHEN TAB 650MG DOSE (2X325MG) PO PRN (06:20)
[2018-12-23] MEDS: traMADol ER 100MG TABLET (ULTRAM ER) PO SCH ×2 (09:00→11:34)
[2018-12-23] MEDS: MULTIVITAMINS/MINERALS THERAP 1 TAB PO SCH (09:04)
[2018-12-23] MEDS: POTASSIUM CHLORIDE 10 MEQ SR TABLET PO SCH (09:04)
[2018-12-23] MEDS: OMEPRAZOLE 20 MG CAP PO SCH (09:04)
[2018-12-23] MEDS: ASPIRIN 81 MG ENTERIC TAB PO SCH (09:04)
[2018-12-23] MEDS: ATORVASTATIN 20 MG TAB PO SCH (09:04)
[2018-12-23] MEDS: PARoxetine 10MG TABLET PO SCH (09:04)
[2018-12-23 10:00] VITALS: BP 116/55
[2018-12-23] MEDS: METOPROLOL TART 25 MG TABLET PO SCH ×2 (10:37→20:41)
[2018-12-23] MEDS: FUROSEMIDE 40 MG TAB PO SCH (10:37)
[2018-12-23] MEDS ORDERED: oxyCODONE 5MG TAB PO ONE (13:00)
[2018-12-23 14:00] VITALS: BP 116/55
--- NOTE | 2018-12-23 17:28 | CR.PDOC ---
General Date of Consultation: Dec 23, [address] Bliss. HPI: 83 year old M admitted with groin pain and left lower extremity pain. Currently the patient is sitting on the side of the bed. He denies lower ext remity requiring pain currently. He is eating breakfast and declines additional exam at this time. Denies any Chest Pain, Shortness of breath, cough, palpitations, abdominal pain, N/V/D or changes in bowel or bladder habits. PAST MEDICAL/ SURGICAL HISTORY: PVD with occlusion of the left femoral artery/history of femoropopliteal bypass. CAD/CABG Dyslipidemia. History of prostate cancer status post radiation. S/P EVAR Hearing loss/wears hearing aids tonsillectomy. cataract surgery. AVR Pacemaker History of left lower extremity cellulitis SOCIAL HISTORY: Quit smoking denies ETOH FAMILY HISTORY: Cancer ROS: As noted in HPI, otherwise 11pt ROS of systems reviewed and unremarkable. PE: Exam is limited at this time as the patient states he is eating breakfast. GEN: 83 yo M, Alert and oriented x 3. HEENT: Normocephalic, atraumatic. Moist mucous membranes. EXT: The patient is sitting with legs dependent. Edema is noted bilaterally. There is a dressing left pretibial area. CTA abdomen IMPRESSION: 1. Two 5.3 cm irregular polypoid masses containing calcifications along the left superior and left posterior rogers of the bladder, which are highly suspicious for bladder malignancy, one which is located at the left ureterovesical junction and causes a left ureteral obstruction and severe left hydroureteronephrosis. Urology consultation is suggested for further management. 2. Long segment occlusion of the left common femoral artery, left proximal, mid, and distal superficial femoral artery, and the endovascular stent graft in the left popliteal artery at and above the level of the left knee joint. There is reconstitution of blood flow in the left popliteal artery just below the level of the left knee joint. 3. Severe stenosis of the left tibioperoneal trunk, proximal left anterior tibial artery, proximal left peroneal artery, and origin and proximal portion of the left posterior tibial artery. 4. Severe stenosis of the right tibioperoneal trunk and proximal right peroneal artery. 5. 3.5 cm x 3.6 cm fusiform infrarenal abdominal aortic aneurysm. No rupture of the aneurysm. Patent aortobiiliac endovascular stent graft in place extending into both common iliac arteries. 6. Occlusion of the inferior mesenteric artery, with collateral circulation supplied by the marginal artery of Ed. 7. Several calculi in the right posterior aspect of the urinary bladder distal to the right ureterovesical junction and there is mild right hydroureter and staghorn calculi in the right renal collecting system. 8. Large left anterior abdominal wall hernia containing the distal descending colon and proximal sigmoid colon between the left external oblique muscle and left transversus abdominis muscle. No bowel obstruction or strangulation. 9. Large indirect right inguinal hernia containing several loops of distal ileum. No bowel obstruction or strangulation. 10. Soft tissue ulcers in the anterior and lateral aspect of the left distal calf and cellulitis or lymphedema in both calves and feet. No CT evidence for an abscess, necrotizing fasciitis, or osteomyelitis. 11. Small post procedural seroma and scarring of the soft tissues in the left groin. 12. Colonic diverticulosis without evidence for diverticulitis. Electronically signed by: Matt Mcwilliams On 12/23/2018 01:32:29 AM Left groin IMPRESSION: 1. Hypoechoic area measuring 4.8 x 1.9 x 2.7 cm corresponding to the area of incision, suspect scarring, and/or postoperative fluid. 2. Proximal femoral artery appears occluded, patent deep femoral artery. Common from artery not visualized. Electronically signed by: Sami Elias On 12/22/2018 20:22:34 PM LLE Angiogram Impression: 1. Left leg angiogram demonstrates a stent within the profunda femoris covering the origin of the superficial femoral artery. Complete occlusion of the proximal mid and distal superficial femoral artery with no distal reconstitution. 2. Numerous collaterals in the thigh but no direct outflow. 3. Reconstitution of the distal popliteal artery which is delayed and patent anterior tibial and posterior tibial artery runoff to the left foot. 4. I see no options for endovascular recanalization in this patient. However given good proximal and distal targets, I will refer to surgery for bypass options. Electronically Signed by Mayda Pedraza MD 12/18/2018 01:30 P A&P: 1. Left lower extremity pain. Currently the patient reports he is comfortable and is sitting up at the side of the bed eating his breakfast. He denies pain currently. Exam was limited this morning. The patient is reviewed by Dr. Bliss. Imaging including recent angiogram and CTA is reviewed. The patient will require femoropopliteal bypass, The pt is aware of this recommendation. Patient states he does not wish to have surgery in [place], he and his are going back to [place] in 2 weeks. Their daughter also lives in [place]. He states he has a vascular surgeon in [place], his is already facilitating an appointment for one arrives in [place], and he will proceed with surgery there. Vital Signs/I&O Vital Signs Date Time Temp Pulse Resp B/P (MAP) Pulse Ox O2 Delivery O2 Flow Rate FiO2 12/23/18 04:30 96.9 95 18 114/60 (78) 94 Room Air I&O- Last 24 Hours up to 6 AM 12/23/18 06:00 Intake Total 2000 ml Output Total 800 ml Balance 1200 ml Laboratory Data Labs 24H Laboratory Tests 2 12/22/18 18:39: Eosinophils (%) (Auto) , Nucleated Red Blood Cells % (auto) 0.0, Neutrophils 50, Lymphocytes (Manual) 6L, Monocytes (Manual) 5, Eosinophils (Manual) 30H, Basophils (Manual) 9H, Poikilocytosis 1+, Anisocytosis 2+, Ovalocytes 1+, Smudge Cells 1+, Platelet Estimate NORMAL 12/22/18 18:45: Bedside Prothrombin Time INR 1.7, Prothrombin Time (MISC) 19.6H 12/22/18 18:46: POC Glucose (Misc Panel) 91, POC Sodium (Misc Panel) 139, POC Potassium (Misc Panel) 4.8, POC Chloride (Misc Panel) 102, POC Total CO2 (Misc Panel) 27.0, POC Blood Urea Nitrogen (Misc Panel 29H, POC Ionized Calcium (Misc Panel) 5.5H, POC Creatinine (Misc Panel) 1.4H, POC Hematocrit (Misc Panel) 37.0L 12/23/18 02:41: Lactic Acid Level 2.0 12/23/18 05:18: Nucleated Red Blood Cells % (auto) 0.0, Anion Gap 3L, Glomerular Filtration Rate 52.4, Calcium Level 9.5 12/23/18 06:23: Urine Color YELLOW, Urine Appearance CLOUDYH, Urine pH 5.0, Urine Specific [place] 1.030, Urine Protein 1+H, Urine Glucose (UA) NEGATIVE, Urine Ketones NEGATIVE, Urine Blood 3+H, Urine Nitrite NEGATIVE, Urine Bilirubin NEGATIVE, Urine Urobilinogen 0.2, Urine Leukocyte Esterase 1+H, Urine WBC (Auto) 60H, Urine RBC (Auto) 167H, Urine Hyaline Casts (Auto) 1, Urine Bacteria (Auto) NEGATIVE, Urine Squamous Epithelial Cells 4, Urine Mucus (Auto) SMALL, Urine Yeast-Like Cells (Auto) SMALLH, Urine Sperm (Auto) CBC/BMP Laboratory Tests 12/22/18 18:39 12/23/18 05:18 Microbiology Microbiology 12/23/18 Urine Culture, Received Pending 12/23/18 Wound Culture, Received Pending 12/23/18 Blood Culture, Received Pending 12/23/18 Blood Culture, Received Pending Allergies Coded Allergies: bacitracin (Verified Allergy, Mild, RED /SWELLING, 08/12/18) neomycin (Verified Allergy, Mild, RED /SWELLING, 08/12/18) polymyxin B (Verified Allergy, Mild, RED /SWELLING, 08/12/18) Home Medications Scheduled Aspirin (Aspirin EC) 81 Mg Tab, 81 MG PO DAILY, (Reported) Atorvastatin Calcium (Atorvastatin Calcium) 40 Mg Tab, 40 MG PO DAILY, (Reported) Cholecalciferol (Vitamin D3) (Vitamin D3) 2,000 Unit Tablet, 2,000 UNIT PO 4XWK, (Reported) MON, WED, THURS, SAT Collagenase Clostridium Hist. (Santyl) 30 Gm Oint...g., 1 DOSE TOP DAILY, (Reported) APPLIES TO LOWER LEFT LEG Furosemide (Lasix) 40 Mg Tab, 40 MG PO DAILY, (Reported) Metoprolol Tartrate (Metoprolol Tartrate) 25 Mg Tablet, 25 MG PO BID, (Reported) Multivitamins (Thera M Plus Tablet) 1 Each Tablet, 1 TAB PO DAILY, (Reported) Omeprazole (Omeprazole) 40 Mg Capsule.dr, 40 MG PO DAILY, (Reported) Oxycodone HCl/Acetaminophen (Oxycodone-Acetaminophen 5-325) 1 Each Tablet, 2 TAB PO QHS, (Reported) Paroxetine HCl (Paroxetine) 10 Mg Tablet, 10 MG PO DAILY, (Reported) Potassium Chloride (Potassium Chloride) 20 Meq Tablet.er, 20 MEQ PO DAILY, (Reported) Scheduled PRN Acetaminophen (Tylenol Extra Strength) 500 Mg Tablet, 1,000 MG PO TID PRN for PAIN, (Reported) Lydia Cummings Dec 23, 2018 08:48
[2018-12-23 18:00] VITALS: BP 113/56
--- NOTE | 2018-12-23 20:05 | IPNPDOC ---
Date Seen The patient was seen on 12/23/18. Progress Note Pt seen and examined this evening. Sitting up eating dinner in no distress. No groin pain. CTA does not show significant hematoma, nor pseudoaneurysm s/p recent arteriogram with Dr Pedraza. No significant groin bruising noted. He has dressings on the left leg, swelling in both legs while dependent, and has limited LLE flow on recent arteriogram. Would benefit from revascularization, but he would prefer to do his surgery in [place] where his daughter lives and is already scheduled to see a vascular surgeon there, and he leaves in 2 weeks. This plan is reasonable. No vascular intervention required this admission. VS, I&O, 24H, Fishbone Vital Signs/I&O Vital Signs Date Time Temp Pulse Resp B/P (MAP) Pulse Ox O2 Delivery O2 Flow Rate FiO2 12/23/18 18:00 97.9 61 18 113/56 (75) 96 12/23/18 15:10 Room Air I&O- Last 24 Hours up to 6 AM 12/23/18 06:00 Intake Total 2000 ml Output Total 800 ml Balance 1200 ml Laboratory Data 24H LABS Laboratory Tests 2 12/23/18 02:41: Lactic Acid Level 2.0 12/23/18 05:18: Nucleated Red Blood Cells % (auto) 0.0, Anion Gap 3L, Glomerular Filtration Rate 52.4, Calcium Level 9.5 12/23/18 06:23: Urine Color YELLOW, Urine Appearance CLOUDYH, Urine pH 5.0, Urine Specific [place] 1.030, Urine Protein 1+H, Urine Glucose (UA) NEGATIVE, Urine Ketones NEGATIVE, Urine Blood 3+H, Urine Nitrite NEGATIVE, Urine Bilirubin NEGATIVE, Urine Urobilinogen 0.2, Urine Leukocyte Esterase 1+H, Urine WBC (Auto) 60H, Urine RBC (Auto) 167H, Urine Hyaline Casts (Auto) 1, Urine Bacteria (Auto) NEGATIVE, Urine Squamous Epithelial Cells 4, Urine Mucus (Auto) SMALL, Urine Yeast-Like Cells (Auto) SMALLH, Urine Sperm (Auto) CBC/BMP Laboratory Tests 12/23/18 05:18 Microbiology Microbiology 12/23/18 Urine Culture, Received Pending 12/23/18 Wound Culture, Received Pending 12/23/18 Blood Culture, Received Pending 12/23/18 Blood Culture, Received Pending DELORIS SOMERS MD Dec 23, 2018 20:05
[2018-12-23] MEDS: PERCOCET 5MG/325MG TAB PO SCH (20:40)
[2018-12-23 22:00] VITALS: BP 114/56
[2018-12-24 02:00] VITALS: BP 129/65
[2018-12-24] MEDS: PIPERACILLIN/TAZOBACTAM SOD 2.25 GM in D5W MINI-BAG PLUS 50 ML IV SCH ×4 (05:04→22:50)
[2018-12-24 06:00] VITALS: BP 133/55
[2018-12-24] MEDS: ACETAMINOPHEN TAB 650MG DOSE (2X325MG) PO PRN ×3 (06:29→23:53)
[2018-12-24 08:44] LABS: HEMATOCRIT 32.9 % (42.0-52.0); HEMOGLOBIN 9.8 g/dl (13.5-17.5); MEAN CORPUSCULAR HEMOGLOBIN 24.7 pg (27.0-33.0); MEAN CORPUSCULAR HGB CONC 29.8 g/dl (32.0-36.5); MEAN CORPUSCULAR VOLUME 83.1 fl (80.0-96.0); PLATELET COUNT, AUTOMATED 183 10^3/uL (150-450); RED BLOOD COUNT 3.96 10^6/uL (4.30-6.10); WHITE BLOOD COUNT 16.6 10^3/uL (4.0-10.0)
[2018-12-24 09:14] LABS: ALBUMIN 2.4 GM/DL (3.2-5.2); ALT/SGPT 14 U/L (12-78); BILIRUBIN,TOTAL 0.5 MG/DL (0.2-1.0); BLOOD UREA NITROGEN 23 MG/DL (7-18); CARBON DIOXIDE LEVEL 29 MEQ/L (21-32); CHLORIDE LEVEL 105 MEQ/L (98-107); CREATININE FOR GFR 1.21 MG/DL (0.70-1.30); GLOMERULAR FILTRATION RATE > 60.0 (>35); GLUCOSE, FASTING 79 MG/DL (70-100); POTASSIUM SERUM 4.3 MEQ/L (3.5-5.1); SODIUM LEVEL 137 MEQ/L (136-145); TOTAL PROTEIN 7.5 GM/DL (6.4-8.2)
[2018-12-24 09:29] LABS: BASOPHILS 7 % (0-1); EOSINOPHILS 16 % (0-3); LYMPHOCYTES 15 % (16-44); MONOCYTES 2 % (0-5); NEUTROPHILS 60 % (28-66)
[2018-12-24 09:31] LABS: ANISOCYTOSIS 1+; HYPOCHROMASIA 1+; PLATELET ESTIMATE NORMAL (NORMAL); POIKILOCYTOSIS 1+
[2018-12-24 09:32] LABS: OVALOCYTES 1+
[2018-12-24 10:00] VITALS: BP 102/53
[2018-12-24] MEDS: traMADol ER 100MG TABLET (ULTRAM ER) PO SCH (10:05)
[2018-12-24] MEDS: POTASSIUM CHLORIDE 10 MEQ SR TABLET PO SCH (10:05)
[2018-12-24] MEDS: MULTIVITAMINS/MINERALS THERAP 1 TAB PO SCH (10:06)
[2018-12-24] MEDS: FUROSEMIDE 40 MG TAB PO SCH (10:06)
[2018-12-24] MEDS: VITAMIN D 1,000 INTERNATIONAL UNITS TABLET PO SCH (10:06)
[2018-12-24] MEDS: ATORVASTATIN 20 MG TAB PO SCH (10:06)
[2018-12-24] MEDS: OMEPRAZOLE 20 MG CAP PO SCH (10:06)
[2018-12-24] MEDS: ASPIRIN 81 MG ENTERIC TAB PO SCH (10:06)
[2018-12-24] MEDS: PARoxetine 10MG TABLET PO SCH (10:07)
[2018-12-24] MEDS: METOPROLOL TART 25 MG TABLET PO SCH ×2 (10:07→21:00)
[2018-12-24 14:00] VITALS: BP 107/52
--- NOTE | 2018-12-24 15:39 | IPNPDOC ---
Text Note Date of Service The patient was seen on 12/24/18. NOTE SUBJECTIVE: Mr. Barrientos was admitted with systemic inflammatory response syndrome. He does not have a fever. Blood and urine cultures are negative. Leukocytosis is slowly improving. OBJECTIVE: Please see vital signs below Physical exam: HENT: Neck is supple, no adenopathy or thyromegaly. Oral mucosa is moist. Cardiovascular: Regular rate and rhythm. No appreciable murmur. Respiratory: Good air movement, no wheezes or cough. Abdomen: Soft, variable tenderness dependent upon his position, nondistended. Extremities: Legs are wrapped in his dressings so unable to see his underlying wound lesions, patient has moderate chronic foot edema ASSESSMENT/PLAN: 1. SIRS. Patient is currently afebrile. He does not have hypertension or tachycardia. Leukocytosis is improving; white blood cell count today is 16.6. Patient is on empiric antibiotics in the form of Zosyn. Source is thought to be wounds with possible cellulitis to his lower extremities. Blood and urine cultures are negative to date. 2. Peripheral vascular disease. Patient has significant peripheral vascular disease resulting in ulcers and chronic wounds to his left lower extremity; left worse than right. Patient is followed in the wound clinic. Patient has been seen by the vascular surgery service, who is recommending femoropopliteal bypass. The patient does not wish to have this done here. He prefers to return to his home in [place] in 2 weeks to be attended to by his known vascular surgeons. In the meantime, he continues with wound management and dressing changes twice weekly. 3. Possible bladder cancer. Additional finding of interest was two masses to the bladder wall; one of which appears to be causing a left ureteral obstruction with hydroureteronephrosis. Patient is also noted to have calculi in the bladder and staghorn calculi to the right renal collecting system. Patient states he is aware of his renal stones but doesn't know anything about bladder masses and is followed by urologist regularly. Again, he prefers to follow-up with his urologist in [place]. 4. Atherosclerotic vascular disease. This includes peripheral vascular disease, coronary artery disease, prior other arterial occlusions, abdominal aortic aneurysm with repair. He continues on his medical management inclusive of aspirin, statin, beta amy. VS,Fishbone, I+O VS, Fishbone, I+O Laboratory Tests 12/24/18 08:31 Vital Signs Date Time Temp Pulse Resp B/P (MAP) Pulse Ox O2 Delivery O2 Flow Rate FiO2 12/24/18 14:00 98.5 75 15 107/52 (70) 94 Room Air I&O- Last 24 Hours up to 6 AM 12/24/18 06:00 Intake Total 3720 ml Output Total 1655 ml Balance 2065 ml DONY BRAGG MD Dec 24, 2018 15:39
[2018-12-24] MEDS: SANTYL OINT 30GM TOP PRN (18:30)
[2018-12-24] MEDS: PERCOCET 5MG/325MG TAB PO SCH (21:14)
[2018-12-24 22:00] VITALS: BP 101/56
[2018-12-25] MEDS: ACETAMINOPHEN TAB 650MG DOSE (2X325MG) PO PRN ×2 (03:58→19:46)
[2018-12-25] MEDS: PIPERACILLIN/TAZOBACTAM SOD 2.25 GM in D5W MINI-BAG PLUS 50 ML IV SCH ×5 (05:07→23:11)
[2018-12-25 06:00] VITALS: BP 119/54
[2018-12-25 07:31] LABS: HEMATOCRIT 32.6 % (42.0-52.0); HEMOGLOBIN 9.7 g/dl (13.5-17.5); MEAN CORPUSCULAR HEMOGLOBIN 24.6 pg (27.0-33.0); MEAN CORPUSCULAR HGB CONC 29.8 g/dl (32.0-36.5); MEAN CORPUSCULAR VOLUME 82.7 fl (80.0-96.0); PLATELET COUNT, AUTOMATED 193 10^3/uL (150-450); RED BLOOD COUNT 3.94 10^6/uL (4.30-6.10); WHITE BLOOD COUNT 16.2 10^3/uL (4.0-10.0)
[2018-12-25 07:54] LABS: CALCIUM LEVEL 10.1 MG/DL (8.8-10.2); CREATININE FOR GFR 1.28 MG/DL (0.70-1.30); GLOMERULAR FILTRATION RATE 57.1 (>35); POTASSIUM SERUM 3.7 MEQ/L (3.5-5.1)
[2018-12-25 08:17] LABS: ANISOCYTOSIS 1+; EOSINOPHILS 34 % (0-3); LYMPHOCYTES 19 % (16-44); MONOCYTES 2 % (0-5); MYELOCYTES 1 % (0-0); NEUTROPHILS 44 % (28-66); PLATELET ESTIMATE NORMAL (NORMAL)
[2018-12-25 09:00] VITALS: BP 96/51
[2018-12-25] MEDS: METOPROLOL TART 25 MG TABLET PO SCH ×2 (09:00→20:30)
[2018-12-25] MEDS: VITAMIN D 1,000 INTERNATIONAL UNITS TABLET PO SCH (09:29)
[2018-12-25] MEDS: traMADol ER 100MG TABLET (ULTRAM ER) PO SCH (09:30)
[2018-12-25] MEDS: MULTIVITAMINS/MINERALS THERAP 1 TAB PO SCH (09:30)
[2018-12-25] MEDS: ATORVASTATIN 20 MG TAB PO SCH (09:30)
[2018-12-25] MEDS: POTASSIUM CHLORIDE 10 MEQ SR TABLET PO SCH (09:31)
[2018-12-25] MEDS: OMEPRAZOLE 20 MG CAP PO SCH (09:31)
[2018-12-25] MEDS: ASPIRIN 81 MG ENTERIC TAB PO SCH (09:31)
[2018-12-25] MEDS: PARoxetine 10MG TABLET PO SCH (09:31)
[2018-12-25] MEDS: FUROSEMIDE 40 MG TAB PO SCH (09:32)
[2018-12-25 14:00] VITALS: BP 120/60
--- NOTE | 2018-12-25 19:15 | IPNPDOC ---
Text Note Date of Service The patient was seen on 12/25/18. NOTE SUBJECTIVE: Mr. Barrientos was admitted with systemic inflammatory response syndrome. He does not have a fever. Blood and urine cultures are negative. Leukocytosis is slowly improving. OBJECTIVE: Please see vital signs below Physical exam: HENT: Neck is supple, no adenopathy or thyromegaly. Oral mucosa is moist. Cardiovascular: Regular rate and rhythm. No appreciable murmur. Respiratory: Good air movement, no wheezes or cough. Abdomen: Soft, variable tenderness dependent upon his position, nondistended. Extremities: Legs are wrapped in his dressings so unable to see his underlying wound lesions, patient has moderate chronic foot edema ASSESSMENT/PLAN: 1. SIRS. Patient is currently afebrile. He does not have hypertension or tachycardia. Leukocytosis is improving; white blood cell count today is 16.2. Patient is on empiric antibiotics in the form of Zosyn. Source is thought to be wounds with possible cellulitis to his lower extremities. Blood and urine cultures are negative to date. We plan to transition him to oral antibiotics. 2. Peripheral vascular disease. Patient has significant peripheral vascular disease resulting in ulcers and chronic wounds to his left lower extremity; left worse than right. Patient is followed in the wound clinic. Patient has been seen by the vascular surgery service, who is recommending femoropopliteal bypass. The patient does not wish to have this done here. He prefers to return to his home in [place] in 2 weeks to be attended to by his known vascular surgeons. In the meantime, he continues with wound management and dressing changes twice weekly. 3. Possible bladder cancer. Additional finding of interest was two masses to the bladder wall; one of which appears to be causing a left ureteral obstruction with hydroureteronephrosis. Patient is also noted to have calculi in the bladder and staghorn calculi to the right renal collecting system. Patient states he is aware of his renal stones but doesn't know anything about bladder masses and is followed by urologist regularly. Again, he prefers to follow-up with his urologist in [place]. 4. Atherosclerotic vascular disease. This includes peripheral vascular disease, coronary artery disease, prior other arterial occlusions, abdominal aortic aneurysm with repair. He continues on his medical management inclusive of aspirin, statin, beta aym. Patient's has arrived from [place]. She has been fully updated. The finding of bladder masses is new to them. She states they already have an appointment scheduled with his urologist in [place]. She is planning to transport her home back to [place] with the assistance of her son. They already also have an appointment scheduled with the wound clinic prior to departure. Discharge is anticipated for tomorrow. VS,Fishbone, I+O VS, Fishbone, I+O Laboratory Tests 12/25/18 07:19 Vital Signs Date Time Temp Pulse Resp B/P (MAP) Pulse Ox O2 Delivery O2 Flow Rate FiO2 12/25/18 14:00 98.2 95 18 120/60 (80) 96 Room Air I&O- Last 24 Hours up to 6 AM 12/25/18 06:00 Intake Total 1110 ml Output Total 1350 ml Balance -240 ml DONY BRAGG MD Dec 25, 2018 19:15
[2018-12-25 20:30] VITALS: BP 102/54
[2018-12-25 20:32] VITALS: BP 102/54
[2018-12-25] MEDS: PERCOCET 5MG/325MG TAB PO SCH (23:06)
[2018-12-26] MEDS: PIPERACILLIN/TAZOBACTAM SOD 2.25 GM in D5W MINI-BAG PLUS 50 ML IV SCH ×2 (05:08→11:30)
[2018-12-26 06:00] VITALS: BP 133/60
[2018-12-26 08:30] VITALS: BP 108/52
[2018-12-26] MEDS: traMADol ER 100MG TABLET (ULTRAM ER) PO SCH (08:37)
[2018-12-26] MEDS: PARoxetine 10MG TABLET PO SCH (08:37)
[2018-12-26] MEDS: FUROSEMIDE 40 MG TAB PO SCH (08:38)
[2018-12-26] MEDS: POTASSIUM CHLORIDE 10 MEQ SR TABLET PO SCH (08:38)
[2018-12-26] MEDS: OMEPRAZOLE 20 MG CAP PO SCH (08:38)
[2018-12-26] MEDS: ATORVASTATIN 20 MG TAB PO SCH (08:38)
[2018-12-26] MEDS: MULTIVITAMINS/MINERALS THERAP 1 TAB PO SCH (08:38)
[2018-12-26] MEDS: ASPIRIN 81 MG ENTERIC TAB PO SCH (08:38)
[2018-12-26] MEDS: METOPROLOL TART 25 MG TABLET PO SCH (08:39)
[2018-12-26] MEDS ORDERED: BACT800T5 PO (11:33)
--- NOTE | 2019-01-05 15:33 | DS.PDOC ---
Discharge Summary General Date of Admission Dec 23, 2018 at 02:28 Date of Discharge December 26, 2018 Specialist/Consultants Involve: DELORIS SOMERS MD Discharge Summary PROCEDURES PERFORMED DURING STAY: [None]. ADMITTING DIAGNOSES: 1. [Atherosclerotic peripheral vascular disease]. DISCHARGE DIAGNOSES: 1. [Atherosclerotic peripheral vascular disease, CAD, valvular heart disease, history of prostate CA]. COMPLICATIONS/CHIEF COMPLAINT: Groin Pain, Sirs. HISTORY OF PRESENT ILLNESS/HOSPITAL COURSE: [This is an 83-year-old man who presents with complaints of left leg and groin pain that was so severe he decided come to the ED for evaluation. He has a history of left femoral occlusion. After receiving medications in the ED, the pain improve a bit therefore the ED provider requested admission for pain management. The patient has an extensive history of vascular disease with intervention. CT angiogram also showed extensive vascular stenoses, occlusions, repaired aneurysm, hydronephrosis and bladder tumours. Although the patient was seen by vascular surgery services the patient's preference was to return to [place] to the care of his own doctors of choice.]. DISCHARGE MEDICATIONS: Please see below. ALLERGIES: Please see below. PHYSICAL EXAMINATION ON DISCHARGE: VITAL SIGNS: Please see below. HENT: Neck is supple, no adenopathy or thyromegaly. Oral mucosa is moist. Cardiovascular: Regular rate and rhythm. No appreciable murmur. Respiratory: Good air movement, no wheezes or cough. Abdomen: Soft, variable tenderness dependent upon his position, nondistended. Extremities: Legs are wrapped in his dressings so unable to see his underlying wound lesions, patient has moderate chronic foot edema LABORATORY DATA: Please see below. IMAGING: LOWER EXTREMITY ARTERIAL ULTRASOUND [IMPRESSION: 1. Hypoechoic area measuring 4.8 x 1.9 x 2.7 cm corresponding to the area of incision, suspect scarring, and/or postoperative fluid. 2. Proximal femoral artery appears occluded, patent deep femoral artery. Common from artery not visualized. Electronically signed by: Sami Elias On 12/22/2018 20:22:34 PM] PROGNOSIS: ACTIVITY: [As tolerated]. DIET: [As tolerated] DISCHARGE PLAN: [Mr. Barrientos will be transported home to [place] by his and family, where he will follow up with his physicians of choice.] DISPOSITION: 01 Home, Self-Care. DISCHARGE INSTRUCTIONS: 1. . ITEMS TO FOLLOWUP ON ON OUTPATIENT: 1. . DISCHARGE CONDITION: [Stable]. TIME SPENT ON DISCHARGE:[45] minutes. Discharge Medications Scheduled Aspirin (Aspirin EC) 81 Mg Tab, 81 MG PO DAILY, (Reported) Atorvastatin Calcium (Atorvastatin Calcium) 40 Mg Tab, 40 MG PO DAILY, (Reported) Cholecalciferol (Vitamin D3) (Vitamin D3) 2,000 Unit Tablet, 2,000 UNIT PO 4XWK, (Reported) MON, WED, THURS, SAT Collagenase Clostridium Hist. (Santyl) 30 Gm Oint...g., 1 DOSE TOP DAILY, (Reported) APPLIES TO LOWER LEFT LEG Furosemide (Lasix) 40 Mg Tab, 40 MG PO DAILY, (Reported) Metoprolol Tartrate (Metoprolol Tartrate) 25 Mg Tablet, 25 MG PO BID, (Reported) Multivitamins (Thera M Plus Tablet) 1 Each Tablet, 1 TAB PO DAILY, (Reported) Omeprazole (Omeprazole) 40 Mg Capsule.dr, 40 MG PO DAILY, (Reported) Oxycodone HCl/Acetaminophen (Oxycodone-Acetaminophen 5-325) 1 Each Tablet, 2 TAB PO QHS, (Reported) Paroxetine HCl (Paroxetine) 10 Mg Tablet, 10 MG PO DAILY, (Reported) Potassium Chloride (Potassium Chloride) 20 Meq Tablet.er, 20 MEQ PO DAILY, (Reported) Sulfamethoxazole/Trimethoprim (Bactrim Ds Tablet) 1 Each Tablet, 1 TAB PO BID Scheduled PRN Acetaminophen (Tylenol Extra Strength) 500 Mg Tablet, 1,000 MG PO TID PRN for PAIN, (Reported) Allergies Coded Allergies: bacitracin (Verified Allergy, Mild, RED /SWELLING, 08/12/18) neomycin (Verified Allergy, Mild, RED /SWELLING, 08/12/18) polymyxin B (Verified Allergy, Mild, RED /SWELLING, 08/12/18) DONY BRAGG MD Jan 05, 2019 15:33
== END 2018-12-26 15:05 | disposition home or self-care (01) | DRG 300 ==
LOC: M ED 16:29 → EDBD 16:29 → M ED INP 12-23 02:28 → M MSPAV 12-23 04:30
PROVIDERS: ADMIT Internal Medicine; ATTEND Internal Medicine
DX: I70.222 Atherosclerosis of native arteries of extremities with rest pain, left leg (principal); L03.116 Cellulitis of left lower limb; R65.10 Systemic inflammatory response syndrome (SIRS) of non-infectious origin without acute organ dysfunction; L97.229 Non-pressure chronic ulcer of left calf with unspecified severity; I25.10 Atherosclerotic heart disease of native coronary artery without angina pectoris; Z79.899 Other long term (current) drug therapy; Z79.82 Long term (current) use of aspirin; Z85.46 Personal history of malignant neoplasm of prostate; E78.5 Hyperlipidemia, unspecified; Z88.8 Allergy status to other drugs, medicaments and biological substances; I71.4 Abdominal aortic aneurysm, without rupture; K57.30 Diverticulosis of large intestine without perforation or abscess without bleeding; K40.91 Unilateral inguinal hernia, without obstruction or gangrene, recurrent; I70.25 Atherosclerosis of native arteries of other extremities with ulceration; N20.0 Calculus of kidney